=== PATIENT | male | born 1985 | race Two or more races ===

== ENCOUNTER 2019-07-25 22:17 | Inpatient (IN) | payer SELFPAY ==
[2019-07-26] MEDS ORDERED: SODIUM CHLORIDE 1,000 ML IV STA ×2 (00:27→03:26)
[2019-07-26] MEDS ORDERED: ONDANSETRON 4 MG/2 ML VIAL IVPUSH ONE (00:31)
[2019-07-26] MEDS ORDERED: ONDANSETRON 4 MG/2 ML VIAL ONE (01:00)
[2019-07-26] MEDS ORDERED: PANTOPRAZOLE SODIUM 40 MG VIAL IVPUSH ONE (01:00)
[2019-07-26] MEDS ORDERED: PANTOPRAZOLE SODIUM 40 MG VIAL ONE (01:01)
--- NOTE | 2019-07-26 01:10 | PDOC ---
History of Present Illness - General Chief Complaint: Pain Stated Complaint: VOMITTING BLOOD/NOSE BLEED/FAINTING Time Seen by Provider: 07/25/19 22:56 History Source: Patient Exam Limitations: No Limitations - History of Present Illness Initial Comments: 07/26/19 05:13 34 yo M with a hx of ETOH abuse (20+ years) and cocaine abuse (via nasal route) presents to the emergency department with hematemsis, nose bleed, and hematochezia with epigastric pain and nausea. Per the patient, he last snorted cocaine 2 days ago. Per the patient, he slept in a van last night and was violently shaking for unknown reasons. Denies fevers. Per the patient, he has never had alcohol detox before. Denies seizures from alcohol withdrawal. Allergies: NKDA Social: Cocaine and alcohol. Drinks "beer all day" Past History - Past Medical History Allergies/Adverse Reactions: Allergies Allergy/AdvReac Type Severity Reaction Status Date / Time No Known Allergies Allergy Verified 07/25/19 22:27 Home Medications: Ambulatory Orders NK [No Known Home Medication] 05/11/18 COPD: No Other medical history: alcoholism - Surgical History Appendectomy: Yes - Suicide/Smoking/Psychosocial Hx Smoking History: Never smoked Hx Alcohol Use: Yes Drug/Substance Use Hx: Yes *Physical Exam - Vital Signs Last Vital Signs Temp Pulse Resp BP Pulse Ox 98.4 F 95 H 20 124/72 99 07/25/19 22:28 07/25/19 22:28 07/25/19 22:28 07/25/19 22:28 07/25/19 22:28 ED Treatment Course - LABORATORY CBC & Chemistry Diagram: 07/26/19 00:46 07/26/19 00:46 - Medications Given in the ED: ED Medications Discontinued Medications Generic Name Dose Route Start Last Admin Trade Name Freq PRN Reason Stop Dose Admin Ondansetron HCl 4 mg 07/26/19 00:31 07/26/19 01:04 Zofran Injection IVPUSH 07/26/19 00:32 4 mg ONCE ONE Administration Pantoprazole Sodium 40 mg 07/26/19 01:00 07/26/19 01:04 Protonix Iv IVPUSH 07/26/19 01:01 40 mg ONCE ONE Administration Medical Decision Making - Medical Decision Making 07/26/19 05:24 34 yo M with a hx of ETOH abuse (20+ years) and cocaine abuse (via nasal route) presents to the emergency department with hematemsis, nose bleed, and hematochezia with epigastric pain and nausea. Initial vitals: Initial Vital Signs Temp Pulse Resp BP Pulse Ox 98.4 F 95 H 20 124/72 99 07/25/19 22:28 07/25/19 22:28 07/25/19 22:28 07/25/19 22:28 07/25/19 22:28 Work up: patient presents to the emergency department with nausea and vomiting in setting of epigastric pain with hematochezia and hematemsis. patient states he drinks beer all day and was violently shaking the night prior to presentation. Last drink was at 2am today. Per the patient, denies trauma and falls. Laboratory Tests 07/26/19 07/26/19 07/26/19 00:46 00:46 00:46 WBC 7.4 RBC 4.76 Hgb 14.1 Hct 41.9 MCV 88.0 MCH 29.6 MCHC 33.6 RDW 14.2 Plt Count 348 MPV 8.9 Absolute Neuts (auto) 3.4 Neutrophils % 46.0 Lymphocytes % 42.4 H Monocytes % 7.9 Eosinophils % 3.0 Basophils % 0.7 Nucleated RBC % 0 PT with INR INR Sodium 138 Potassium 3.7 Chloride 103 Carbon Dioxide 25 Anion Gap 10 BUN 5.8 L Creatinine 0.6 Est GFR (CKD-EPI)AfAm 153.11 Est GFR (CKD-EPI)NonAf 132.10 Random Glucose 101 Calcium 8.5 Magnesium 2.1 Cancelled Total Bilirubin 0.5 AST 94 H ALT 120 H Alkaline Phosphatase 108 Creatine Kinase Creatine Kinase Index CK-MB (CK-2) Troponin I Total Protein 8.7 H Albumin 4.3 Lipase 99 Cancelled Urine Color Urine Appearance Urine pH Ur Specific [place] Urine Protein Urine Glucose (UA) Urine Ketones Urine Blood Urine Nitrite Urine Bilirubin Urine Urobilinogen Ur Leukocyte Esterase Stool Occult Blood Opiates Screen Methadone Screen Barbiturate Screen Phencyclidine Screen Ur Amphetamines Screen MDMA (Ecstasy) Screen Benzodiazepines Screen Cocaine Screen U Marijuana (THC) Screen Alcohol, Quantitative Blood Type Antibody Screen 07/26/19 07/26/19 07/26/19 00:46 00:46 00:46 WBC RBC Hgb Hct MCV MCH MCHC RDW Plt Count MPV Absolute Neuts (auto) Neutrophils % Lymphocytes % Monocytes % Eosinophils % Basophils % Nucleated RBC % PT with INR 12.20 INR 1.03 Sodium Potassium Chloride Carbon Dioxide Anion Gap BUN Creatinine Est GFR (CKD-EPI)AfAm Est GFR (CKD-EPI)NonAf Random Glucose Calcium Magnesium Total Bilirubin AST ALT Alkaline Phosphatase Creatine Kinase 1292 H Creatine Kinase Index 1.2 CK-MB (CK-2) 16.5 H Troponin I < 0.02 Total Protein Albumin Lipase Urine Color Urine Appearance Urine pH Ur Specific [place] Urine Protein Urine Glucose (UA) Urine Ketones Urine Blood Urine Nitrite Urine Bilirubin Urine Urobilinogen Ur Leukocyte Esterase Stool Occult Blood Opiates Screen Methadone Screen Barbiturate Screen Phencyclidine Screen Ur Amphetamines Screen MDMA (Ecstasy) Screen Benzodiazepines Screen Cocaine Screen U Marijuana (THC) Screen Alcohol, Quantitative Blood Type O POSITIVE Antibody Screen Negative 07/26/19 07/26/19 07/26/19 00:46 02:23 02:32 WBC RBC Hgb Hct MCV MCH MCHC RDW Plt Count MPV Absolute Neuts (auto) Neutrophils % Lymphocytes % Monocytes % Eosinophils % Basophils % Nucleated RBC % PT with INR INR Sodium Potassium Chloride Carbon Dioxide Anion Gap BUN Creatinine Est GFR (CKD-EPI)AfAm Est GFR (CKD-EPI)NonAf Random Glucose Calcium Magnesium Total Bilirubin AST ALT Alkaline Phosphatase Creatine Kinase Creatine Kinase Index CK-MB (CK-2) Troponin I Total Protein Albumin Lipase Urine Color Yellow Urine Appearance Clear Urine pH 5.5 Ur Specific [place] 1.006 L Urine Protein Negative Urine Glucose (UA) Negative Urine Ketones Negative Urine Blood Negative Urine Nitrite Negative Urine Bilirubin Negative Urine Urobilinogen 0.2 Ur Leukocyte Esterase Negative Stool Occult Blood Positive Opiates Screen Methadone Screen Barbiturate Screen Phencyclidine Screen Ur Amphetamines Screen MDMA (Ecstasy) Screen Benzodiazepines Screen Cocaine Screen U Marijuana (THC) Screen Alcohol, Quantitative 247.2 H Blood Type Antibody Screen 07/26/19 07/26/19 02:32 03:50 WBC RBC Hgb Hct MCV MCH MCHC RDW Plt Count MPV Absolute Neuts (auto) Neutrophils % Lymphocytes % Monocytes % Eosinophils % Basophils % Nucleated RBC % PT with INR INR Sodium Potassium Chloride Carbon Dioxide Anion Gap BUN Creatinine Est GFR (CKD-EPI)AfAm Est GFR (CKD-EPI)NonAf Random Glucose Calcium Magnesium Total Bilirubin AST ALT Alkaline Phosphatase Creatine Kinase 1151 H Creatine Kinase Index 1.3 CK-MB (CK-2) 15.1 H Troponin I Total Protein Albumin Lipase Urine Color Urine Appearance Urine pH Ur Specific [place] Urine Protein Urine Glucose (UA) Urine Ketones Urine Blood Urine Nitrite Urine Bilirubin Urine Urobilinogen Ur Leukocyte Esterase Stool Occult Blood Opiates Screen Negative Methadone Screen Negative Barbiturate Screen Negative Phencyclidine Screen Negative Ur Amphetamines Screen Negative MDMA (Ecstasy) Screen Negative Benzodiazepines Screen Negative Cocaine Screen Positive A* U Marijuana (THC) Screen Negative Alcohol, Quantitative Blood Type Antibody Screen 1292 --> 1151 CK s/p 2 L of NS. Will order a third NS. Drug screen positive for cocaine and positive ethanol level in serum. Patient was re-examined. No tenderness to palpation in the abdomen. Does not have follow up care (no PMD). He also wants to enroll in alcohol detoxification. Patient does not have AYSHA but concerns exist of elevated CK despite 2 L. Will admit patient.
[2019-07-26 01:11] LABS: BASO % 0.7 % (0-2.0); HEMATOCRIT 41.9 % (35.4-49); HEMOGLOBIN 14.1 GM/dL (11.7-16.9); LYMPH % 42.4 % (8-40); MCH 29.6 pg (25.7-33.7); MCHC 33.6 g/dl (32.0-35.9); MEAN PLT VOLUME 8.9 fl (7.5-11.1); MONO % 7.9 % (3.8-10.2); PLATELET COUNT 348 K/MM3 (134-434); RBC 4.76 M/mm3 (4.00-5.60); RDW 14.2 % (11.9-15.9); WHITE BLOOD COUNT 7.4 K/mm3 (4.0-10.0)
[2019-07-26 01:25] LABS: INR 1.03 (0.83-1.09); PROTHROMBIN TIME (PATIENT) 12.2 SEC (9.7-13.0)
--- NOTE | 2019-07-26 01:28 | PDOC ---
Documentation entered by Alyssa Brewer SCRIBE, acting as scribe for Toshia Harden MD. Toshia Harden MD: This documentation has been prepared by the Daniella bell Xhesika, SCRIBE, under my direction and personally reviewed by me in its entirety. I confirm that the documentation accurately reflects all work, treatment, procedures, and medical decision making performed by me. Attending Attestation - Resident Resident Name: Pablito Zapata - ED Attending Attestation I have performed the following: I have examined & evaluated the patient, The case was reviewed & discussed with the resident, I agree w/resident's findings & plan, Exceptions are as noted - HPI HPI: 07/26/19 01:03 The patient is a 34 year old male with a significant PMH of alcohol use (since a teenager) and cocaine use (snorts) who presents to the emergency department for 2 days of hematemesis, nose bleed, and blood in stool (with dark brown clots ) associated with diffuse epigastric pain and nausea. The patient states he last snorted cocaine 2 days ago. The patient denies chest pain, shortness of breath, headache and dizziness. Denies fever, chills, cough,and constipation. Denies dysuria, frequency, urgency. - Physicial Exam PE: 07/26/19 01:04 GENERAL: Awake, alert, and fully oriented, in no acute distress. (+) alcohol on breath. HEAD: No signs of trauma EYES: PERRLA, EOMI, sclera anicteric, conjunctiva clear ENT: Auricles normal inspection, hearing grossly normal, (+) blood in L nares. NECK: Normal ROM, supple, no lymphadenopathy, JVD, or masses LUNGS: Breath sounds equal, clear to auscultation bilaterally. No wheezes, and no crackles HEART: Regular rate and rhythm, normal S1 and S2, no murmurs, rubs or gallops ABDOMEN: (+) epigastric tenderness. Soft, normoactive bowel sounds. No guarding , no rebound. No masses EXTREMITIES: Normal range of motion, no edema. No clubbing or cyanosis. No cords, erythema, or tenderness NEUROLOGICAL: Cranial nerves II through XII grossly intact. SKIN: Warm, Dry, normal turgor, no rashes or lesions noted. - Medical Decision Making 07/26/19 01:21 34 yo male w PMH of etoh and cocaine abuse p/w epigastric pain,nausea and reports vomiting blood and having rectal bleeding plan IVF, cbc,comp, stool hemoccult, type & screen,IVF,PPI,antiemtics and reassessment 07/26/19 01:27 07/26/19 01:44 review of labs: no anemia etoh level around 250 07/26/19 01:46 sl elevated lfts 07/26/19 01:57 diff diag includes etoh gastritis,gi bleed, hemorrhoids,atypical chest pain
[2019-07-26 01:34] LABS: ALBUMIN 4.3 g/dl (3.4-5.0); BILIRUBIN,TOTAL 0.5 mg/dL (0.2-1); BLOOD UREA NITROGEN 5.8 mg/dL (7-18); CALCIUM 8.5 mg/dL (8.5-10.1); CREATININE 0.6 mg/dL (0.55-1.3); MAGNESIUM 2.1 mg/dL (1.8-2.4); POTASSIUM 3.7 mmol/L (3.5-5.1); TOT PROT 8.7 g/dl (6.4-8.2)
[2019-07-26 02:46] LABS: PH,URINE 5.5 (5.0-8.0); URINE APPEARANCE CLEAR; URINE BILIRUBIN NEGATIVE (NEGATIVE); URINE COLOR YELLOW; URINE GLUCOSE (UA) NEGATIVE (NEGATIVE); URINE KETONE NEGATIVE (NEGATIVE); URINE LEUK ESTERASE NEGATIVE (NEGATIVE); URINE NITRITE NEGATIVE (NEGATIVE); URINE PROTEIN NEGATIVE (NEGATIVE); URINE UROBILINOGEN 0.2 mg/dL (0.2-1.0)
[2019-07-26 03:47] LABS: METHADONE, UR NEGATIVE ng/ml (CUTOFF=300); OPIATES, URI NEGATIVE ng/ml (CUTOFF=300); PHENCYCLIDINE,URINE NEGATIVE ng/ml (CUTOFF=25); URINE AMPHETAMINES NEGATIVE ng/ml (CUTOFF=500); URINE BARBITURATES NEGATIVE ng/ml (CUTOFF=200); URINE BENZODIAZEPINES NEGATIVE ng/ml (CUTOFF=200)
[2019-07-26 03:51] LABS: COCAINE, UR POSITIVE ng/ml (CUTOFF=300)
--- NOTE | 2019-07-26 07:15 | PDOC ---
*Physical Exam - Vital Signs Last Vital Signs Temp Pulse Resp BP Pulse Ox 98.4 F 95 H 20 124/72 99 07/25/19 22:28 07/25/19 22:28 07/25/19 22:28 07/25/19 22:28 07/25/19 22:28 ED Treatment Course - LABORATORY CBC & Chemistry Diagram: 07/27/19 06:48 07/27/19 06:48 - ADDITIONAL ORDERS Additional order review: Laboratory Results 07/26/19 07/26/19 07/26/19 03:50 02:32 02:32 PT with INR INR Sodium Potassium Chloride Carbon Dioxide Anion Gap BUN Creatinine Est GFR (CKD-EPI)AfAm Est GFR (CKD-EPI)NonAf Random Glucose Calcium Magnesium Total Bilirubin AST ALT Alkaline Phosphatase Creatine Kinase 1151 H Creatine Kinase Index 1.3 CK-MB (CK-2) 15.1 H Troponin I Total Protein Albumin Lipase Urine Color Yellow Urine Appearance Clear Urine pH 5.5 Ur Specific [place] 1.006 L Urine Protein Negative Urine Glucose (UA) Negative Urine Ketones Negative Urine Blood Negative Urine Nitrite Negative Urine Bilirubin Negative Urine Urobilinogen 0.2 Ur Leukocyte Esterase Negative Stool Occult Blood Opiates Screen Negative Methadone Screen Negative Barbiturate Screen Negative Phencyclidine Screen Negative Ur Amphetamines Screen Negative MDMA (Ecstasy) Screen Negative Benzodiazepines Screen Negative Cocaine Screen Positive A* U Marijuana (THC) Screen Negative Alcohol, Quantitative Blood Type Antibody Screen 07/26/19 07/26/19 07/26/19 02:23 00:46 00:46 PT with INR INR Sodium Potassium Chloride Carbon Dioxide Anion Gap BUN Creatinine Est GFR (CKD-EPI)AfAm Est GFR (CKD-EPI)NonAf Random Glucose Calcium Magnesium Total Bilirubin AST ALT Alkaline Phosphatase Creatine Kinase 1292 H Creatine Kinase Index 1.2 CK-MB (CK-2) 16.5 H Troponin I < 0.02 Total Protein Albumin Lipase Urine Color Urine Appearance Urine pH Ur Specific [place] Urine Protein Urine Glucose (UA) Urine Ketones Urine Blood Urine Nitrite Urine Bilirubin Urine Urobilinogen Ur Leukocyte Esterase Stool Occult Blood Positive Opiates Screen Methadone Screen Barbiturate Screen Phencyclidine Screen Ur Amphetamines Screen MDMA (Ecstasy) Screen Benzodiazepines Screen Cocaine Screen U Marijuana (THC) Screen Alcohol, Quantitative 247.2 H Blood Type Antibody Screen 07/26/19 07/26/19 07/26/19 00:46 00:46 00:46 PT with INR 12.20 INR 1.03 Sodium Potassium Chloride Carbon Dioxide Anion Gap BUN Creatinine Est GFR (CKD-EPI)AfAm Est GFR (CKD-EPI)NonAf Random Glucose Calcium Magnesium Cancelled Total Bilirubin AST ALT Alkaline Phosphatase Creatine Kinase Creatine Kinase Index CK-MB (CK-2) Troponin I Total Protein Albumin Lipase Cancelled Urine Color Urine Appearance Urine pH Ur Specific [place] Urine Protein Urine Glucose (UA) Urine Ketones Urine Blood Urine Nitrite Urine Bilirubin Urine Urobilinogen Ur Leukocyte Esterase Stool Occult Blood Opiates Screen Methadone Screen Barbiturate Screen Phencyclidine Screen Ur Amphetamines Screen MDMA (Ecstasy) Screen Benzodiazepines Screen Cocaine Screen U Marijuana (THC) Screen Alcohol, Quantitative Blood Type O POSITIVE Antibody Screen Negative 07/26/19 00:46 PT with INR INR Sodium 138 Potassium 3.7 Chloride 103 Carbon Dioxide 25 Anion Gap 10 BUN 5.8 L Creatinine 0.6 Est GFR (CKD-EPI)AfAm 153.11 Est GFR (CKD-EPI)NonAf 132.10 Random Glucose 101 Calcium 8.5 Magnesium 2.1 Total Bilirubin 0.5 AST 94 H ALT 120 H Alkaline Phosphatase 108 Creatine Kinase Creatine Kinase Index CK-MB (CK-2) Troponin I Total Protein 8.7 H Albumin 4.3 Lipase 99 Urine Color Urine Appearance Urine pH Ur Specific [place] Urine Protein Urine Glucose (UA) Urine Ketones Urine Blood Urine Nitrite Urine Bilirubin Urine Urobilinogen Ur Leukocyte Esterase Stool Occult Blood Opiates Screen Methadone Screen Barbiturate Screen Phencyclidine Screen Ur Amphetamines Screen MDMA (Ecstasy) Screen Benzodiazepines Screen Cocaine Screen U Marijuana (THC) Screen Alcohol, Quantitative Blood Type Antibody Screen 07/26/19 00:46 RBC 4.76 MCV 88.0 MCHC 33.6 RDW 14.2 MPV 8.9 Neutrophils % 46.0 Lymphocytes % 42.4 H Monocytes % 7.9 Eosinophils % 3.0 Basophils % 0.7 - Medications Given in the ED: ED Medications Discontinued Medications Generic Name Dose Route Start Last Admin Trade Name Freq PRN Reason Stop Dose Admin Sodium Chloride 1,000 mls @ 1,000 mls/hr 07/26/19 00:27 07/26/19 00:58 Normal Saline - IV 07/26/19 01:26 1,000 mls/hr ASDIR STA Administration Sodium Chloride 1,000 mls @ 1,000 mls/hr 07/26/19 03:26 07/26/19 03:27 Normal Saline - IV 07/26/19 04:25 1,000 mls/hr ASDIR STA Administration Ondansetron HCl 4 mg 07/26/19 00:31 07/26/19 01:04 Zofran Injection IVPUSH 07/26/19 00:32 4 mg ONCE ONE Administration Pantoprazole Sodium 40 mg 07/26/19 01:00 07/26/19 01:04 Protonix Iv IVPUSH 07/26/19 01:01 40 mg ONCE ONE Administration Medical Decision Making - Medical Decision Making 07/26/19 07:13 Pt received on sign out from Dr. Zapata. Briefly, pt with positive for ETOH/ cocaine, presenting with hematochezia and hematemesis, positive stool guaic, CK 1292 mildly decreased after 2L NS. Plan to admit for detox. 07/26/19 09:30 Discussed with the hospitalist who agrees to admit the patient. *DC/Admit/Observation/Transfer Diagnosis at time of Disposition: Rhabdomyolysis - Discharge Dispostion Condition at time of disposition: Stable - Referrals - Patient Instructions - Post Discharge Activity
[2019-07-26 08:35] LABS: HEMATOCRIT 39.4 % (35.4-49); HEMOGLOBIN 13.7 GM/dL (11.7-16.9); MCH 30.2 pg (25.7-33.7); MCHC 34.8 g/dl (32.0-35.9); MEAN CELL VOLUME 86.7 fl (80-96); MEAN PLT VOLUME 8.7 fl (7.5-11.1); PLATELET COUNT 322 K/MM3 (134-434); RBC 4.54 M/mm3 (4.00-5.60); WHITE BLOOD COUNT 6.7 K/mm3 (4.0-10.0)
--- NOTE | 2019-07-26 09:18 | EKG ---
Test Reason : Blood Pressure : / mmHG Vent. Rate : 075 BPM Atrial Rate : 075 BPM P-R Int : 178 ms QRS Dur : 094 ms QT Int : 388 ms P-R-T Axes : 070 062 046 degrees QTc Int : 433 ms NORMAL SINUS RHYTHM WITH SINUS ARRHYTHMIA NORMAL ECG NO PREVIOUS ECGS AVAILABLE Confirmed by ALPHONSO MURRY, LEIA ([id number]) on 07/26/2019 9:18:16 AM Referred By: Confirmed By:LEIA WERNER MD
[2019-07-26] MEDS ORDERED: chlordiazePOXIDE HCL 10 MG CAPSULE PO PRN ×3 (09:41→20:55)
--- NOTE | 2019-07-26 09:49 | HP ---
CHIEF COMPLAINT: Hematemesis, Hematochezia, Epistaxsis, Epigastric pain PCP: None HISTORY OF PRESENT ILLNESS: 34 y/o M with PMHx of Polysubstance abuse (EtOH, Cocaine) presents with Epigastric pain + Hematemesis + Hematochezia. Patient was accompanied by his who aided in providing the HPI. Patient was in his usual state of health until 07/24 where had 2-4 episodes of vomiting described as dark brown with bright red blood. This was accompanied by 2 episodes of bright red blood clots in his stool and epistaxsis. Patient mentions his extensive EtOH use, consuming approx. 20-25, 24oz beers daily for many years however on the day these events occurred, he mentions 6-7 additional tequila shots and snorting 1 line of Cocaine. Shortly after, he began to feel an 8/10 epigastric pain and tightness. The pain persisted prompting him to visit [facility]. This is the first time this has happened. He denies any recent NSAID use and mentions taking Ampicillin 500mg x 6 tablets in one day which provided no relief. Denies any recent trauma. Additionally complains of Chills. Denies any fevers, chest pain, SOB, diarrhea, constipation, hematuria, dysuria. Recent Travel: Denies PAST MEDICAL HISTORY: Polysubstance abuse (EtOH, Cocaine) PAST SURGICAL HISTORY: Appendectomy Social History: Smoking: Denies Alcohol: 20-25, 24oz beers daily since age 16 Drugs: Cocaine use (1 line every 2-3 weeks for the past 2 years) Residence: At home with Born in [place], Came to the [place] about 20 years ago Family History: Mother: HTN Father: Unknown Allergies No Known Allergies Allergy (Verified 07/25/19 22:27) HOME MEDICATIONS: Home Medications Medication Instructions Recorded NK [No Known Home Medication] 05/11/18 REVIEW OF SYSTEMS As per HPI PHYSICAL EXAMINATION Vital Signs - 24 hr 07/25/19 07/26/19 07/26/19 22:28 07:55 09:39 Temperature 98.4 F 98.8 F Pulse Rate 95 H Pulse Rate [ 78 Left Radial] Respiratory 20 16 Rate Blood Pressure 124/72 Blood Pressure 110/59 L [Right] O2 Sat by Pulse 99 98 98 Oximetry (%) GENERAL: A&Ox3, NAD HEAD: NCAT EYES: PERRL, EOMI EARS, NOSE, THROAT: Dried blood in the nares. Oropharynx clear without exudates. Moist mucous membranes. NECK: Supple, No JVD LUNGS: CTAB, No wheezes, no crackles HEART: Regular rate and rhythm, normal S1 and S2 without murmur ABDOMEN: Soft, Tender to palpation in the midepigastrum, not distended, + bowel sounds, no guarding, no rebound MUSCULOSKELETAL: No CVA tenderness. EXTREMITIES: No peripheral edema. NEUROLOGICAL: Cranial nerves II-XII intact. Normal speech. PSYCHIATRIC: Cooperative. Good eye contact. CIWA 18 SKIN: Warm, dry RECTAL: Stool in the Vault, good sphincter tone, No external hemmorrhoids visualized, No internal hemorrhoids felt, No active bleeding noted, no blood on tip of glove Laboratory Last Values WBC 6.7 K/mm3 (4.0-10.0) 07/26/19 08:20 RBC 4.54 M/mm3 (4.00-5.60) 07/26/19 08:20 Hgb 13.7 GM/dL (11.7-16.9) 07/26/19 08:20 Hct 39.4 % (35.4-49) 07/26/19 08:20 MCV 86.7 fl (80-96) 07/26/19 08:20 MCH 30.2 pg (25.7-33.7) 07/26/19 08:20 MCHC 34.8 g/dl (32.0-35.9) 07/26/19 08:20 RDW 14.0 % (11.9-15.9) 07/26/19 08:20 Plt Count 322 K/MM3 (134-434) 07/26/19 08:20 MPV 8.7 fl (7.5-11.1) 07/26/19 08:20 Absolute Neuts (auto) 3.4 K/mm3 (1.5-8.0) 07/26/19 00:46 Neutrophils % 46.0 % (42.8-82.8) 07/26/19 00:46 Lymphocytes % 42.4 % (8-40) H 07/26/19 00:46 Monocytes % 7.9 % (3.8-10.2) 07/26/19 00:46 Eosinophils % 3.0 % (0-4.5) 07/26/19 00:46 Basophils % 0.7 % (0-2.0) 07/26/19 00:46 Nucleated RBC % 0 % (0-0) 07/26/19 00:46 PT with INR 12.20 SEC (9.7-13.0) 07/26/19 00:46 INR 1.03 (0.83-1.09) 07/26/19 00:46 Sodium 138 mmol/L (136-145) 07/26/19 00:46 Potassium 3.7 mmol/L (3.5-5.1) 07/26/19 00:46 Chloride 103 mmol/L (98-107) 07/26/19 00:46 Carbon Dioxide 25 mmol/L (21-32) 07/26/19 00:46 Anion Gap 10 MMOL/L (8-16) 07/26/19 00:46 BUN 5.8 mg/dL (7-18) L 07/26/19 00:46 Creatinine 0.6 mg/dL (0.55-1.3) 07/26/19 00:46 Est GFR (CKD-EPI)AfAm 153.11 07/26/19 00:46 Est GFR (CKD-EPI)NonAf 132.10 07/26/19 00:46 Random Glucose 101 mg/dL (74-106) 07/26/19 00:46 Calcium 8.5 mg/dL (8.5-10.1) 07/26/19 00:46 Magnesium 2.1 mg/dL (1.8-2.4) 07/26/19 00:46 Total Bilirubin 0.5 mg/dL (0.2-1) 07/26/19 00:46 AST 94 U/L (15-37) H 07/26/19 00:46 ALT 120 U/L (13-61) H 07/26/19 00:46 Alkaline Phosphatase 108 U/L (45-117) 07/26/19 00:46 Creatine Kinase 1151 U/L (26-308) H 07/26/19 03:50 Creatine Kinase Index 1.3 % (0.0-5.0) 07/26/19 03:50 CK-MB (CK-2) 15.1 ng/mL (0.5-3.6) H 07/26/19 03:50 Troponin I < 0.02 ng/ml (0.00-0.05) 07/26/19 00:46 Total Protein 8.7 g/dl (6.4-8.2) H 07/26/19 00:46 Albumin 4.3 g/dl (3.4-5.0) 07/26/19 00:46 Lipase 99 U/L (73-393) 07/26/19 00:46 Urine Color Yellow 07/26/19 02:32 Urine Appearance Clear 07/26/19 02:32 Urine pH 5.5 (5.0-8.0) 07/26/19 02:32 Ur Specific [place] 1.006 (1.010-1.035) L 07/26/19 02:32 Urine Protein Negative (NEGATIVE) 07/26/19 02:32 Urine Glucose (UA) Negative (NEGATIVE) 07/26/19 02:32 Urine Ketones Negative (NEGATIVE) 07/26/19 02:32 Urine Blood Negative (NEGATIVE) 07/26/19 02:32 Urine Nitrite Negative (NEGATIVE) 07/26/19 02:32 Urine Bilirubin Negative (NEGATIVE) 07/26/19 02:32 Urine Urobilinogen 0.2 mg/dL (0.2-1.0) 07/26/19 02:32 Ur Leukocyte Esterase Negative (NEGATIVE) 07/26/19 02:32 Stool Occult Blood Positive (NEGATIVE) 07/26/19 02:23 Opiates Screen Negative ng/ml (EZKQUM=877) 07/26/19 02:32 Methadone Screen Negative ng/ml (VEGJCA=019) 07/26/19 02:32 Barbiturate Screen Negative ng/ml (INSHHQ=682) 07/26/19 02:32 Phencyclidine Screen Negative ng/ml (CUTOFF=25) 07/26/19 02:32 Ur Amphetamines Screen Negative ng/ml (LXUCWR=829) 07/26/19 02:32 MDMA (Ecstasy) Screen Negative ng/ml (YNPZZJ=905) 07/26/19 02:32 Benzodiazepines Screen Negative ng/ml (WRPBGM=789) 07/26/19 02:32 Cocaine Screen Positive ng/ml (NSJKWP=287) A* 07/26/19 02:32 U Marijuana (THC) Screen Negative ng/ml (CUTOFF=50) 07/26/19 02:32 Alcohol, Quantitative 247.2 mg/dL (0.0-5.0) H 07/26/19 00:46 Blood Type O POSITIVE 07/26/19 06:00 Antibody Screen Negative 07/26/19 00:46 Active Medications Chlordiazepoxide HCl (Librium -) 25 mg PO Q8H [facility] Stop: 07/26/19 21:01 Last Admin: 07/26/19 13:41 Dose: 25 mg Chlordiazepoxide HCl (Librium -) 10 mg PO Q12H PRN PRN Reason: Signs/symptoms of Withdrawal Stop: 07/30/19 00:00 Chlordiazepoxide HCl (Librium -) 10 mg PO Q8H PRN PRN Reason: Signs/symptoms of Withdrawal Stop: 07/27/19 13:34 Chlordiazepoxide HCl (Librium -) 25 mg PO Q8H [facility] Stop: 07/27/19 21:01 Last Admin: 07/26/19 15:01 Dose: Not Given Chlordiazepoxide HCl (Librium -) 15 mg PO Q8H [facility] Stop: 07/28/19 21:01 Chlordiazepoxide HCl (Librium -) 10 mg PO Q8H [facility] Stop: 07/29/19 21:01 Chlordiazepoxide HCl (Librium -) 10 mg PO ONCE ONE Stop: 07/30/19 05:01 Folic Acid (Folic Acid -) 1 mg PO DAILY [facility] Pantoprazole Sodium 80 mg/ (Sodium Chloride) 100 mls @ 10 mls/hr IVPB Q10H [facility] Last Admin: 07/26/19 13:35 Dose: 10 mls/hr Octreotide Acetate 200 mcg/Octreotide Acetate 1,000 mcg/Dextrose 500 mls @ 20.833 mls/hr IVPB ASDIR WANDA; Protocol Sodium Chloride (Normal Saline -) 1,000 mls @ 150 mls/hr IV ASDIR WANDA Multivitamins/Minerals/Vitamin C (Tab-A-Vit -) 1 tab PO DAILY [facility] Thiamine HCl (Vitamin B1 Injection -) 200 mg IVPB DAILY [facility] IMAGING: -EKG: NSR, Prolonged QT, VR 85, QTc 487 ASSESSMENT/PLAN: 34 y/o M with PMHx of Polysubstance abuse (EtOH, Cocaine) presents with Epigastric pain + Hematemesis + Hematochezia. #GI Bleed -Concerning for Variceal bleed; Still must consider alcoholic gastritis, hemorroidal bleed and diverticular disease -Rectal exam noted above, FOBT positive, H&H Stable, VSS, No isolated BUN elevation -Maintain 2 large bore IV's (>18 guage) -Vital signs Q4H; Call if HR > 100 or SBP < 100 -NS @ 150 mls/hr -IV Pantoprazole GTT -IV Octreotide GTT -NPO -Fall precautions -Supplemental O2 to maintain SpO2 > 90% -Avoid NSAIDs/ASA -Trend H&H -Serial abdominal exams -GI (Dr. Howe) consulted, appreciate rec's #Polysubstance use disorder -UTox + for cocaine, EtOH 247.2 -CIWA score 18--Librium Protocol started -Bananna bag bolus now -Thiamine, folic acid, MVI Daily -Addiction medicine (Dr. Anderson) consulted -Will likely need rehab placement -Would avoid beta gina in the setting of Cocaine + #Rhabdomyolysis -In the setting of recent cocaine use -1292-->1151 after 2L Bolus -Will continue to Hydrate and check CPK in AM. #Transaminitis -In the setting of Chronic EtOH use -Trend, if continue to rise will consider further imaging and Hepatitis panel #Prolonged QT -QTc 487 noted on EKG -Avoid QT Prolonging agents #FEN -NS @ 150 mls/hr -Lytes WNL, Replete PRN -NPO #PPx -DVT: SCDs; Will avoid chemical AC in the setting of GIB Dispo: Monitor on Tele Visit type - Emergency Visit Emergency Visit: Yes ED Registration Date: 07/26/19 Care time: The patient presented to the Emergency Department on the above date and was hospitalized for further evaluation of their emergent condition. - New Patient This patient is new to me today: Yes Date on this admission: 07/26/19 - Critical Care Critical Care patient: No ATTENDING PHYSICIAN STATEMENT I saw and evaluated the patient. I reviewed the resident's note and discussed the case with the resident. I agree with the resident's findings and plan as documented. SUBJECTIVE: OBJECTIVE: ASSESSMENT AND PLAN:
[2019-07-26] MEDS ORDERED: THIAMINE HCL 200 MG/2 ML VIAL IVPB SCH (10:00)
[2019-07-26] MEDS: chlordiazePOXIDE HCL 25 MG CAPSULE PO SCH ×3 (10:16→21:49)
[2019-07-26] MEDS ORDERED: FOLIC ACID INJECTION - 1 MG, THIAMINE HCL 100 MG, MULTIVIT INJECTION ADULT 10 ML in SOD... IVPB ONE (10:30)
[2019-07-26] MEDS ORDERED: OCTREOTIDE ACETATE 200 MCG, OCTREOTIDE ACETATE 1,000 MCG in DEXTROSE 5%-WATER - 496 ML IVPB SCH (10:30)
[2019-07-26] MEDS ORDERED: SODIUM CHLORIDE 1,000 ML IV SCH ×2 (10:45→20:55)
[2019-07-26] MEDS: PANTOPRAZOLE SODIUM 80 MG in SODIUM CHLORIDE 100 ML IVPB SCH ×2 (11:30→13:35)
[2019-07-26 12:48] VITALS: BMI 27.6
[2019-07-26] MEDS ORDERED: chlordiazePOXIDE HCL 25 MG CAPSULE PO SCH ×2 (13:00→21:00)
--- NOTE | 2019-07-26 13:27 | CONSULT ---
Consult Detox [facility] Reason for Current Admission/Consult: Patient is alcohol dependent and cocaine use disorder. Referred by:: Sara Gallegos - History History of Present Illness: 34 year old male with alcohol dependence admitted 07/25/19 for hematemesis and hematochezia. He also admits and endorses to use of cocaine on a regular basis Patient drinks daily up to 25 24 oz of beers per day. He has been drinking since the age of 19 and last drank the day of admission. Patient uses cocaine sporadically 3-4 times per week. Patient also smokes ciggarettes daily about 1 ppd. - History Source History Provided By: Patient Limitations to Obtaining History: No Limitations - Alcohol/Substance Use Hx Alcohol Use: Yes (25 24 oz beers daily) Hx Substance Use: Yes (cocaine also sporadically) Hx Substance Use Treatment: No - Significant Medical Findings: Patient is hemodynamically stable right now and his physical exam other than epigastric tenderness is benign. Patient is having withdrawals symptoms: sweats, tremulousness, etc. CIWA Score - CIWA Score Nausea/Vomitin-Mild Nausea/No Vomiting Muscle Tremors: 4-Moderate,w/Arms Extend Anxiety: 4-Mod. Anxious/Guarded Agitation: 2 Paroxysmal Sweats: 3 Orientation: 0-Oriented Tacttile Disturbances: 0-None Auditory Disturbances: 0-None Visual Disturbances: 0-None Headache: 0-None Present CIWA-Ar Total Score: 14 Assessment Plan - Plan Plan: 1. Alcohol Dependence with complicated withdrawals. Patient can be started on oral librium moderate detox protocol Patient can be removed from NPO to initiate detox protocol. Upon completion of the detox protocol and when he is medically stable and his GI resolves, he can either continue the protocol at [facility] or continue onwards to rehab at [facility]. 2. GI Bleed: Upper most likely due to alcoholic gastritis, lower bleed may be due to hemorrhoids or some other cause. Would consult GI if it persists to do colonoscopy for site of bleed. Upper endoscopy would not be unwarranted as well, if hematemesis were to continue or recur to rule out esophageal varices secondary to chronic alcoholism and cirrhosis. LFT's should be followed. - Medication Detox Regimen/Protocol: Librium
--- NOTE | 2019-07-26 13:31 | CON.GI ---
Consult Consult Specialty:: Gastroenterology Reason for Consultation:: Blood in emesis - History of Present Illness Chief Complaint: Blood in emesis History of Present Illness: 34 yo M with polysubstance use (alcohol and cocaine) who was admitted with 2 days of emesis, some with blood, in setting of nose bleed, dark stool (but not melenic). Now without pain, emesis for >24 hours. BUN not elevated, Hgb normal and stable. No tachycardia. Normal BP. No nausea. Presently without abdominal pain. No history of prior GI illness. - History Source History Provided By: Patient Limitations to Obtaining History: No Limitations - Alcohol/Substance Use Hx Alcohol Use: Yes History of Substance Use: reports: Cocaine - Smoking History Smoking history: Never smoked Home Medications - Allergies Allergies/Adverse Reactions: Allergies Allergy/AdvReac Type Severity Reaction Status Date / Time No Known Allergies Allergy Verified 07/25/19 22:27 - Home Medications Home Medications: Ambulatory Orders NK [No Known Home Medication] 05/11/18 Review of Systems - Review of Systems Constitutional: denies: Chills, Diaphoresis, Fever, Loss of Appetite Gastrointestinal: reports: Vomiting, Vomiting Blood. denies: Abdominal Pain, Constipation, Diarrhea, Dysphagia, Melena, Nausea Physical Exam-GI Vital Signs: Vital Signs Temperature 98.2 F 07/26/19 12:42 Pulse Rate 73 07/26/19 12:42 Respiratory Rate 18 07/26/19 12:42 Blood Pressure 145/89 07/26/19 12:42 O2 Sat by Pulse Oximetry (%) 98 07/26/19 09:39 Cardiovascular: Yes: Regular Rate and Rhythm, S1, S2. No: Murmur Respiratory: Yes: CTA Bilaterally. No: Rhonchi, Wheezes Gastrointestinal Inspection: Yes: WNL ...Auscultate: Yes: Normoactive Bowel Sounds ...Palpate: No: Guarding, Hepatomegaly, Mass, Tenderness Labs: CBC, BMP 07/26/19 08:20 07/26/19 00:46 INR, PTT INR 1.03 (0.83-1.09) 07/26/19 00:46 Assessment/Plan Nose bleed, emesis, epidose of hematemesis without increase in heart rate, elevation of BUN, or drop in hemoglobin/ hematocrit in setting of cocaine and EtOH use (both positive on screen). Likely all a function of EtOH intoxication. No indication for EGD at this time given normal vital signs and BUN. Favor observation, supportive care, and counseling re: polysubstance use at this time. OK to continue acid suppressive therapy.
--- NOTE | 2019-07-26 14:50 | EKG ---
Test Reason : Blood Pressure : / mmHG Vent. Rate : 085 BPM Atrial Rate : 085 BPM P-R Int : 158 ms QRS Dur : 094 ms QT Int : 410 ms P-R-T Axes : 073 059 052 degrees QTc Int : 487 ms NORMAL SINUS RHYTHM PROLONGED QT ABNORMAL ECG WHEN COMPARED WITH ECG OF 26-JUL-2019 00:24, NO SIGNIFICANT CHANGE WAS FOUND Confirmed by ALPHONSO MURRY, LEIA ([id number]) on 07/26/2019 2:49:33 PM Referred By: Abhijit WHIPPLE Confirmed By:LEIA WERNER MD
--- NOTE | 2019-07-26 17:57 | PN ---
Teaching Attending Note Name of Resident: Sara Gallegos ATTENDING PHYSICIAN STATEMENT I saw and evaluated the patient. I reviewed the resident's note and discussed the case with the resident. I agree with the resident's findings and plan as documented. SUBJECTIVE: Ongoing abdominal pain - no further nausea/vomiting/hematemesis/ hematochezia. No CP/palpitations/lightheadedness. OBJECTIVE: Afebrile, Hemodynamically Stable. Last Vital Signs Temp Pulse Resp BP Pulse Ox 97.3 F L 67 20 134/77 98 07/26/19 17:20 07/26/19 17:20 07/26/19 17:20 07/26/19 17:20 07/26/19 09:39 HEENT - Atraumatic,Normocephalic. Heart - S1, S2, RRR lungs - clear to auscultation Abdomen - Soft, epigastric tenderness. Bowel Sounds normal. Extremities - no edema, no calf tenderness. Neuro - AAO x 3. Tremor++. Tone/Power normal all 4 extremities. Laboratory Results - last 24 hr 07/26/19 07/26/19 07/26/19 00:46 00:46 00:46 WBC 7.4 RBC 4.76 Hgb 14.1 Hct 41.9 MCV 88.0 MCH 29.6 MCHC 33.6 RDW 14.2 Plt Count 348 MPV 8.9 Absolute Neuts (auto) 3.4 Neutrophils % 46.0 Lymphocytes % 42.4 H Monocytes % 7.9 Eosinophils % 3.0 Basophils % 0.7 Nucleated RBC % 0 PT with INR INR Sodium 138 Potassium 3.7 Chloride 103 Carbon Dioxide 25 Anion Gap 10 BUN 5.8 L Creatinine 0.6 Est GFR (CKD-EPI)AfAm 153.11 Est GFR (CKD-EPI)NonAf 132.10 Random Glucose 101 Calcium 8.5 Magnesium 2.1 Cancelled Total Bilirubin 0.5 AST 94 H ALT 120 H Alkaline Phosphatase 108 Creatine Kinase Creatine Kinase Index CK-MB (CK-2) Troponin I Total Protein 8.7 H Albumin 4.3 Lipase 99 Cancelled Urine Color Urine Appearance Urine pH Ur Specific Opp Urine Protein Urine Glucose (UA) Urine Ketones Urine Blood Urine Nitrite Urine Bilirubin Urine Urobilinogen Ur Leukocyte Esterase Stool Occult Blood Opiates Screen Methadone Screen Barbiturate Screen Phencyclidine Screen Ur Amphetamines Screen MDMA (Ecstasy) Screen Benzodiazepines Screen Cocaine Screen U Marijuana (THC) Screen Alcohol, Quantitative Blood Type Antibody Screen 07/26/19 07/26/19 07/26/19 00:46 00:46 00:46 WBC RBC Hgb Hct MCV MCH MCHC RDW Plt Count MPV Absolute Neuts (auto) Neutrophils % Lymphocytes % Monocytes % Eosinophils % Basophils % Nucleated RBC % PT with INR 12.20 INR 1.03 Sodium Potassium Chloride Carbon Dioxide Anion Gap BUN Creatinine Est GFR (CKD-EPI)AfAm Est GFR (CKD-EPI)NonAf Random Glucose Calcium Magnesium Total Bilirubin AST ALT Alkaline Phosphatase Creatine Kinase 1292 H Creatine Kinase Index 1.2 CK-MB (CK-2) 16.5 H Troponin I < 0.02 Total Protein Albumin Lipase Urine Color Urine Appearance Urine pH Ur Specific Opp Urine Protein Urine Glucose (UA) Urine Ketones Urine Blood Urine Nitrite Urine Bilirubin Urine Urobilinogen Ur Leukocyte Esterase Stool Occult Blood Opiates Screen Methadone Screen Barbiturate Screen Phencyclidine Screen Ur Amphetamines Screen MDMA (Ecstasy) Screen Benzodiazepines Screen Cocaine Screen U Marijuana (THC) Screen Alcohol, Quantitative Blood Type O POSITIVE Antibody Screen Negative 07/26/19 07/26/19 07/26/19 00:46 02:23 02:32 WBC RBC Hgb Hct MCV MCH MCHC RDW Plt Count MPV Absolute Neuts (auto) Neutrophils % Lymphocytes % Monocytes % Eosinophils % Basophils % Nucleated RBC % PT with INR INR Sodium Potassium Chloride Carbon Dioxide Anion Gap BUN Creatinine Est GFR (CKD-EPI)AfAm Est GFR (CKD-EPI)NonAf Random Glucose Calcium Magnesium Total Bilirubin AST ALT Alkaline Phosphatase Creatine Kinase Creatine Kinase Index CK-MB (CK-2) Troponin I Total Protein Albumin Lipase Urine Color Yellow Urine Appearance Clear Urine pH 5.5 Ur Specific [place] 1.006 L Urine Protein Negative Urine Glucose (UA) Negative Urine Ketones Negative Urine Blood Negative Urine Nitrite Negative Urine Bilirubin Negative Urine Urobilinogen 0.2 Ur Leukocyte Esterase Negative Stool Occult Blood Positive Opiates Screen Methadone Screen Barbiturate Screen Phencyclidine Screen Ur Amphetamines Screen MDMA (Ecstasy) Screen Benzodiazepines Screen Cocaine Screen U Marijuana (THC) Screen Alcohol, Quantitative 247.2 H Blood Type Antibody Screen 07/26/19 07/26/19 07/26/19 02:32 03:50 06:00 WBC RBC Hgb Hct MCV MCH MCHC RDW Plt Count MPV Absolute Neuts (auto) Neutrophils % Lymphocytes % Monocytes % Eosinophils % Basophils % Nucleated RBC % PT with INR INR Sodium Potassium Chloride Carbon Dioxide Anion Gap BUN Creatinine Est GFR (CKD-EPI)AfAm Est GFR (CKD-EPI)NonAf Random Glucose Calcium Magnesium Total Bilirubin AST ALT Alkaline Phosphatase Creatine Kinase 1151 H Creatine Kinase Index 1.3 CK-MB (CK-2) 15.1 H Troponin I Total Protein Albumin Lipase Urine Color Urine Appearance Urine pH Ur Specific Opp Urine Protein Urine Glucose (UA) Urine Ketones Urine Blood Urine Nitrite Urine Bilirubin Urine Urobilinogen Ur Leukocyte Esterase Stool Occult Blood Opiates Screen Negative Methadone Screen Negative Barbiturate Screen Negative Phencyclidine Screen Negative Ur Amphetamines Screen Negative MDMA (Ecstasy) Screen Negative Benzodiazepines Screen Negative Cocaine Screen Positive A* U Marijuana (THC) Screen Negative Alcohol, Quantitative Blood Type O POSITIVE Antibody Screen 07/26/19 08:20 WBC 6.7 RBC 4.54 Hgb 13.7 Hct 39.4 MCV 86.7 MCH 30.2 MCHC 34.8 RDW 14.0 Plt Count 322 MPV 8.7 Absolute Neuts (auto) Neutrophils % Lymphocytes % Monocytes % Eosinophils % Basophils % Nucleated RBC % PT with INR INR Sodium Potassium Chloride Carbon Dioxide Anion Gap BUN Creatinine Est GFR (CKD-EPI)AfAm Est GFR (CKD-EPI)NonAf Random Glucose Calcium Magnesium Total Bilirubin AST ALT Alkaline Phosphatase Creatine Kinase Creatine Kinase Index CK-MB (CK-2) Troponin I Total Protein Albumin Lipase Urine Color Urine Appearance Urine pH Ur Specific Opp Urine Protein Urine Glucose (UA) Urine Ketones Urine Blood Urine Nitrite Urine Bilirubin Urine Urobilinogen Ur Leukocyte Esterase Stool Occult Blood Opiates Screen Methadone Screen Barbiturate Screen Phencyclidine Screen Ur Amphetamines Screen MDMA (Ecstasy) Screen Benzodiazepines Screen Cocaine Screen U Marijuana (THC) Screen Alcohol, Quantitative Blood Type Antibody Screen Current Medications Generic Name Dose Route Start Last Admin Trade Name Freq PRN Reason Stop Dose Admin Chlordiazepoxide HCl 25 mg 07/26/19 05:00 07/26/19 13:41 Librium - PO 07/26/19 21:01 25 mg Q8H [facility]AN[facility] Administration Chlordiazepoxide HCl 10 mg 07/29/19 00:00 Librium - PO 07/30/19 00:00 Q12H PRN Signs/symptoms of Withdrawal Chlordiazepoxide HCl 10 mg 07/26/19 13:35 Librium - PO 07/27/19 13:34 Q8H PRN Signs/symptoms of Withdrawal Chlordiazepoxide HCl 25 mg 07/26/19 13:00 07/26/19 15:01 Librium - PO 07/27/19 21:01 Not Given Q8H WANDA Chlordiazepoxide HCl 15 mg 07/28/19 05:00 Librium - PO 07/28/19 21:01 Q8H WAN[facility] Chlordiazepoxide HCl 10 mg 07/29/19 05:00 Librium - PO 07/29/19 21:01 Q8H [facility]AN[facility] Chlordiazepoxide HCl 10 mg 07/30/19 05:00 Librium - PO 07/30/19 05:01 ONCE ONE Folic Acid 1 mg 07/27/19 10:00 Folic Acid - PO DAILY [facility] Pantoprazole Sodium 80 mg/ 100 mls @ 10 mls/hr 07/26/19 10:45 07/26/19 11:30 Sodium Chloride IVPB 10 mls/hr Q10H [facility] Administration 8 MG/HR Octreotide Acetate 200 mcg/ 500 mls @ 20.833 mls/hr 07/26/19 10:30 07/26/19 16:31 Octreotide Acetate 1,000 mcg/ IVPB 20.833 mls/hr Dextrose ASDIR WANDA Administration Protocol Sodium Chloride 1,000 mls @ 150 mls/hr 07/26/19 10:45 07/26/19 16:32 Normal Saline - IV 150 mls/hr ASDIR WANDA Administration Multivitamins/Minerals/Vitamin C 1 tab 07/27/19 10:00 Tab-A-Vit - PO DAILY [facility] Thiamine HCl 200 mg 07/27/19 10:00 Vitamin B1 Injection - IVPB DAILY [facility] Home Medications Medication Instructions Recorded NK [No Known Home Medication] 05/11/18 ASSESSMENT/PLAN: 34 year old male with history of Polysubstance Abuse (Alcohol, Cocaine) presents with rapid onset epigastric pain with associated nausea/hematemesis/ hematochezia/epistaxis. 1. Acute GI Bleed FOBT positive. Long Hx of Alcohol abuse. Will cover with IV Protonix and Octreotide pending GI eval for EGD Unable to exclude varices at this time given extensive alcohol history. NPO/IV Fluids Serial H/H monitoring - will transfuse if necessary. 2. Acute Alcohol Withdrawal Librium as per [facility] Addiction medicine consult. MVI, Thiamine, Folic Acid. Electrolyte monitoring. 3. Elevated Transaminases, likely sec to Alcoholic Hepatitis due to Alcohol excess. Will monitor. 4. Polysubstance Abuse - Alcohol, cocaine Addiction Medicine Consult Possible candidate for [facility] s/p GI Ix. 5. Acute Rhabdomyolysis sec to cocaine use Aggressive IV hydration Repeat CPK in AM DVT Px - SCDs. No Heparin/Lovenox given active GI Bleed.
[2019-07-26 19:33] LABS: HEMATOCRIT 39.7 % (35.4-49); HEMOGLOBIN 13.2 GM/dL (11.7-16.9); MCH 29.6 pg (25.7-33.7); MCHC 33.3 g/dl (32.0-35.9); MEAN CELL VOLUME 88.7 fl (80-96); MEAN PLT VOLUME 8.6 fl (7.5-11.1); PLATELET COUNT 296 K/MM3 (134-434); RBC 4.48 M/mm3 (4.00-5.60); WHITE BLOOD COUNT 7.9 K/mm3 (4.0-10.0)
[2019-07-26] MEDS: OCTREOTIDE ACETATE 200 MCG, OCTREOTIDE ACETATE 1,000 MCG in DEXTROSE 5%-WATER - 496 ML IVPB SCH (21:50)
[2019-07-27] MEDS ORDERED: chlordiazePOXIDE 5 MG CAPSULE PO SCH (05:00)
[2019-07-27] MEDS: OCTREOTIDE ACETATE 200 MCG, OCTREOTIDE ACETATE 1,000 MCG in DEXTROSE 5%-WATER - 496 ML IVPB SCH (05:22)
[2019-07-27] MEDS: chlordiazePOXIDE HCL 25 MG CAPSULE PO SCH ×2 (05:22→13:05)
[2019-07-27] MEDS ORDERED: PANTOPRAZOLE SODIUM 80 MG in SODIUM CHLORIDE 100 ML IVPB SCH (06:45)
[2019-07-27 07:43] LABS: BASO % 0.6 % (0-2.0); EOS % 3.2 % (0-4.5); HEMATOCRIT 37.5 % (35.4-49); HEMOGLOBIN 12.7 GM/dL (11.7-16.9); LYMPH % 25.6 % (8-40); MCH 30.2 pg (25.7-33.7); MCHC 33.9 g/dl (32.0-35.9); MEAN CELL VOLUME 88.9 fl (80-96); MEAN PLT VOLUME 9.2 fl (7.5-11.1); MONO % 9.7 % (3.8-10.2); NEUT % 60.9 % (42.8-82.8); PLATELET COUNT 269 K/MM3 (134-434); RBC 4.22 M/mm3 (4.00-5.60); RDW 13.9 % (11.9-15.9); WHITE BLOOD COUNT 6.6 K/mm3 (4.0-10.0)
[2019-07-27 07:54] LABS: ALBUMIN 3.3 g/dl (3.4-5.0); BILIRUBIN,TOTAL 1.3 mg/dL (0.2-1); BLOOD UREA NITROGEN 6.2 mg/dL (7-18); CALCIUM 7.9 mg/dL (8.5-10.1); CREATININE 0.5 mg/dL (0.55-1.3); PHOSPHOROUS 2.5 mg/dL (2.5-4.9); POTASSIUM 3.8 mmol/L (3.5-5.1); TOT PROT 6.8 g/dl (6.4-8.2)
[2019-07-27] MEDS ORDERED: MULTIVITAMINS (DAILY MVI) TABLET (FP) PO SCH ×2 (10:00)
[2019-07-27] MEDS ORDERED: THIAMINE HCL 200 MG/2 ML VIAL IVPB SCH ×2 (10:00)
[2019-07-27] MEDS ORDERED: FOLIC ACID 1 MG TABLET (FP) PO SCH ×2 (10:00)
--- NOTE | 2019-07-27 12:30 | PN ---
Teaching Attending Note Name of Resident: Elio Eller ATTENDING PHYSICIAN STATEMENT I saw and evaluated the patient. I reviewed the resident's note and discussed the case with the resident. I agree with the resident's findings and plan as documented. SUBJECTIVE:asymptomatic. states he is no longer nauseated and no more episodes of hemetemsis. tolerated clears. denies Cp, SOB, fever, chills, N/V/C/D OBJECTIVE: Last Vital Signs Temp Pulse Resp BP Pulse Ox 98.4 F 60 20 136/61 95 07/27/19 10:00 07/27/19 10:00 07/27/19 10:00 07/27/19 10:07/27/19 09:00 General NAD HEENT no icterus CV S1 S2 RRR no murmur/rub/gallop Lungs CTA B/L no wheezing/rales/rhonchi Abdomen soft NT/ND Extremities no tremors ASSESSMENT AND PLAN: 34 year old male with history of Polysubstance Abuse (Alcohol, Cocaine) presents with rapid onset epigastric pain with associated nausea/hematemesis/ hematochezia/epistaxis. 1. Acute GI Bleed- no more episodes. Hgb stable. seen by GI and no need for EGD as inpatient. can follow up as outpatient. d/c PPI and octreotide ggt. 2. Elevated Bili- could be due to rhabdo vs obstruction vs not typical cholestasis pattern. check RUQ u/s. will repeat labs 3. acute rhabdo- due to cocaine use. now resolved. can d/c ivf 4. transaminitis= due to ETOH vs rhabdo. stable. u/s ordered. will trend 5. ETOH withdrawal- CIWA 0. on librium protocol. not interested in inpatient rehab. counselled on salvage determiner consequences of ETOH use. need for abstinence. will f/u outpatient AA 6.DVT ppx- Can start hep sq 7. plan for transfer to [facility] for continued detox pending results of u/s
--- NOTE | 2019-07-27 15:42 | DS ---
Physical Exam: SUBJECTIVE: Patient seen and examined OBJECTIVE: Vital Signs Period Temp Pulse Resp BP Sys/Maria Pulse Ox Last 24 Hr 97.2 F-99 F 56-74 18-20 97-136/52-77 95-96 PHYSICAL EXAM GENERAL: The patient is awake, alert, and fully oriented, in no acute distress. HEAD: Normal with no signs of trauma. EYES: PERRL, extraocular movements intact, sclera anicteric, conjunctiva clear. ENT: Ears normal, nares patent, oropharynx clear without exudates, moist mucous membranes. NECK: Trachea midline, full range of motion, supple. LUNGS: Breath sounds equal, clear to auscultation bilaterally, no wheezes, no crackles, no accessory muscle use. HEART: Regular rate and rhythm, S1, S2 without murmur, rub or gallop. ABDOMEN: Soft, nontender, nondistended, normoactive bowel sounds, no guarding, no rebound, no hepatosplenomegaly, no masses. EXTREMITIES: 2+ pulses, warm, well-perfused, no edema. NEUROLOGICAL: Cranial nerves II through XII grossly intact. Normal speech, gait not observed. PSYCH: Normal mood, normal affect. SKIN: Warm, dry, normal turgor, no rashes or lesions noted. LABS Laboratory Results - last 24 hr 07/26/19 07/27/19 07/27/19 19:08 06:48 06:48 WBC 7.9 6.6 RBC 4.48 4.22 Hgb 13.2 12.7 Hct 39.7 37.5 MCV 88.7 88.9 MCH 29.6 30.2 MCHC 33.3 33.9 RDW 14.0 13.9 Plt Count 296 269 MPV 8.6 9.2 Absolute Neuts (auto) 4.0 Neutrophils % 60.9 D Lymphocytes % 25.6 D Monocytes % 9.7 Eosinophils % 3.2 Basophils % 0.6 Nucleated RBC % 0 Sodium 138 Potassium 3.8 Chloride 104 Carbon Dioxide 25 Anion Gap 8 BUN 6.2 L Creatinine 0.5 L Est GFR (CKD-EPI)AfAm 165.02 Est GFR (CKD-EPI)NonAf 142.38 Random Glucose 95 Calcium 7.9 L Phosphorus 2.5 Magnesium 2.0 Total Bilirubin 1.3 H AST 136 H ALT 137 H Alkaline Phosphatase 79 Creatine Kinase 437 H Creatine Kinase Index 0.8 CK-MB (CK-2) 3.8 H Total Protein 6.8 Albumin 3.3 L HOSPITAL COURSE: Date of Admission:07/26/19 Date of Discharge: 07/27/19 Discharge Summary Reason For Visit: RHABDOMYOLYSIS Current Active Problems Rhabdomyolysis (Acute) Condition: Stable - Instructions Diet, Activity, Other Instructions: YOUR VISIT You came to the hospital because you were vomiting and had chest pain. You were given medication to help with you vomiting blood. Your blood was tested to make sure you were not having a heart attack. You did not have a heart attack. You were given fluids and medications to help you with these problems. Your blood work showed that your liver has some significant values that you should follow up on with a primary care doctor. It was found that you were experiencing some withdrawal and you were started on medication to treat this. You may now go to rehab to complete your rehabilitation. MEDICATIONS You came in with no home medications. You will now need to continue taking medications at rehab to complete care for withdrawal. Please begin taking a multivitamin every day. ADDITIONAL CARE Please make an appointment to see a primary care provider for care of your liver and for general health maintenance 1 week from today. You will need to have lab work done for repeat measurement of your blood levels. Since you do not have a primary care provider, you can call to make an appointment with the [facility] residents' clinic located at [address] [place] [address]. If you would like to continue seeing Dr. Eller, please ask for a Friday morning appointment. Please make an appointment to see a conveyor man, Dr. Howe, 1 week from today. ADDITIONAL INFORMATION Please call [phone] or come directly to the emergency department if you experience unusual headache, vision change, shortness of breath, chest pain, numbness, tingling, loss of alertness/awareness, loss of function, unusual bleeding or any alarming symptoms. Referrals: Ronny Henley MD [Staff Physician] - Dreeck Howe MD [Staff Physician] - Disposition: [facility]ENTION FACILITY - Home Medications Comprehensive Discharge Medication List: Ambulatory Orders Folic Acid - 1 mg PO DAILY tablet 07/27/19 Multivitamins [Multivit ([facility] Formulary)] 1 tab PO DAILY #0 tab 07/27/19 Multivitamins [Tab-A-Vit -] 1 tab PO DAILY #30 tab 07/27/19 Thiamine HCl [Vitamin B1 Injection -] 200 mg IVPB DAILY vial 07/27/19 ATTENDING PHYSICIAN STATEMENT I saw and evaluated the patient. I reviewed the resident's note and discussed the case with the resident. I agree with the resident's findings and plan as documented. SUBJECTIVE: OBJECTIVE: ASSESSMENT AND PLAN:
[2019-07-27 18:47] VITALS: BP 119/76; PULSE 61; TEMP 99
[2019-07-28] MEDS ORDERED: chlordiazePOXIDE HCL 10 MG CAPSULE PO PRN
[2019-07-28] MEDS ORDERED: chlordiazePOXIDE HCL 10 MG CAPSULE PO SCH (05:00)
[2019-07-28] MEDS ORDERED: chlordiazePOXIDE 5 MG CAPSULE PO SCH ×2 (05:00)
[2019-07-29] MEDS ORDERED: chlordiazePOXIDE HCL 10 MG CAPSULE PO PRN ×2
[2019-07-29] MEDS ORDERED: chlordiazePOXIDE HCL 10 MG CAPSULE PO ONE (05:00)
[2019-07-29] MEDS ORDERED: chlordiazePOXIDE HCL 10 MG CAPSULE PO SCH ×2 (05:00)
[2019-07-30] MEDS ORDERED: chlordiazePOXIDE HCL 10 MG CAPSULE PO ONE ×2 (05:00)
== END 2019-07-27 19:45 | disposition other institution (70) | DRG 253 ==
LOC: JER 22:17 → JERBED 07-26 06:48 → J8W 07-26 10:14 → J4S 07-26 20:55
PROVIDERS: ATTEND Internal Medicine
PROC: HZ2ZZZZ Detoxification Services for Substance Abuse Treatment (ICD-10-PCS; principal; 2019-07-26)
DX: K92.2 Gastrointestinal hemorrhage, unspecified (principal); R04.0 Epistaxis; F14.10 Cocaine abuse, uncomplicated; M62.82 Rhabdomyolysis; R74.0 Nonspecific elevation of levels of transaminase and lactic acid dehydrogenase [LDH]; F10.239 Alcohol dependence with withdrawal, unspecified
CPT/HCPCS: 36415; 76705-TC; 80053; 80307; 81003; 82272; 82550; 82553; 83690; 83735; 84100; 84484; 85025; 85027; 85610; 86850; 86900; 86901; 93005; 93010; 99285-25; J7030

== ENCOUNTER 2020-07-25 23:41 | Emergency (ER) | payer SELFPAY ==
[2020-07-26] MEDS ORDERED: LACTATED RINGERS SOLUTION 1000 ML INFUS.BAG IV ONE (00:23)
[2020-07-26] MEDS ORDERED: ONDANSETRON 4 MG/2 ML VIAL IVPUSH ONE (00:23)
--- NOTE | 2020-07-26 00:24 | PDOC ---
History of Present Illness - General Chief Complaint: Vomiting/Diarrhea Stated Complaint: VOMITING,DIARRHEA History Source: Patient Exam Limitations: No Limitations - History of Present Illness Initial Comments: 35 y/o male presenting to [facility] ER complaining of vomiting blood and small bloody pellets [place]. Started this evening after drinking a 24 case of beer. H/o similar about 8 months ago. Seen at this facility but declined detox. States he would be interested in help with alcohol use disorder tonight. Denies chest pain, SOB, fevers, abdominal pain, dysuria, hematuria, penile or testicular pain. Past History - Travel History Traveled outside of the country in the last 30 days: No Close contact w/someone who was outside of country & ill: No - Medical History Allergies/Adverse Reactions: Allergies Allergy/AdvReac Type Severity Reaction Status Date / Time No Known Allergies Allergy Verified 07/26/20 00:12 Home Medications: Ambulatory Orders Folic Acid - 1 mg PO DAILY tablet 07/27/19 Multivitamins [Multivit ([facility] Formulary)] 1 tab PO DAILY #0 tab 07/27/19 Multivitamins [Tab-A-Vit -] 1 tab PO DAILY #30 tab 07/27/19 Thiamine HCl [Vitamin B1 Injection -] 200 mg IVPB DAILY vial 07/27/19 Other medical history: Alcohol and Cocaine Use disorders - Surgical History Appendectomy: Yes - Psycho-Social/Smoking History Smoking History: Never smoked Information on smoking cessation initiated: No - Substance Abuse Hx (Audit-C & DAST Scrn) How often the patient has a drink containing alcohol: 2-4 times / month Number of drinks the patient has on a typical day: 3 or 4 How often the patient has six or more drinks on one occasion: Monthly Score: In Men: 4 or > Positive; In Women: 3 or > Positive: 5 Screen Result (Pos requires Nsg. Audit-10AR): Positive In the last yr the pt used illegal drug/Rx for NonMed reason: No Score: Yes response is considered Positive: 0 Screen Result (Positive result requires Nsg. DAST-10): Negative Review of Systems - Review of Systems Able to Perform ROS?: Yes Comments:: 10 point review of systems completed. All systems negative except as noted abov e. *Physical Exam - Vital Signs Last Vital Signs Temp Pulse Resp BP Pulse Ox 98.1 F 98 H 18 133/80 99 07/25/20 23:45 07/25/20 23:45 07/25/20 23:45 07/25/20 23:45 07/25/20 23:45 - Physical Exam General Appearance: Yes: Appropriately Dressed. No: Apparent Distress HEENT: positive: Normal Voice Neck: positive: Trachea midline, Supple Respiratory/Chest: positive: Other (Speaking in multi-word responses without pausing.). negative: Respiratory Distress Cardiovascular: positive: Regular Rate Gastrointestinal/Abdominal: positive: Flat, Hepatomegaly. negative: Tender, Pulsatile Mass, Distended, Guarding, Rebound, Tenderness Rectal Exam: positive: heme negative stool, normal exam, normal rectal tone. negative: decreased tone, hemorrhoids Musculoskeletal: positive: Normal Inspection Extremity: positive: Normal Capillary Refill, Normal Range of Motion Integumentary: positive: Normal Color, Dry, Warm Neurologic: positive: Fully Oriented, Alert, Normal Mood/Affect, Normal Response ED Treatment Course - LABORATORY CBC & Chemistry Diagram: 07/26/20 00:54 07/26/20 00:54 - RADIOLOGY Radiograph Interpretation: CTA of Abd/Pelvis THIS IS A PRELIMINARY REPORT DATE OF SERVICE: 2020-07-26 04:09:14 IMAGES: [id number] EXAM: ABDOMEN/PELVIS CTA W/WO CONTR HISTORY: Alcohol abuse with hematemesis and hematochezia COMPARISON: None. FINDINGS: Lung bases are clear. The visualized cardiac chambers are normal size and configuration. The liver is fatty. Normal gallbladder, pancreas, spleen, adrenal glands and kidneys. The stomach and abdominal small and large bowel are normal. No evidence of acute GI bleeding. There is no aortic dissection or aneurysm. There is no significant retroperitone al lymphadenopathy. The pelvic small and large bowel are normal. There is no evidence of appendiciti s although the only question was visualized. The urinary bladder is mildly inflamed. No bladder stones. The prostate gland is normal. No pelvic free fluid is identified. There is no significant pelvic lymphadenopathy. IMPRESSION: Fatty liver. Mild cystitis which can be correlated with urinalysis. One or more of the following dose reduction techniques were used: automated exposure control, adjustment of the mA and/or kV according to patient size, use of iterative reconstructive technique. THIS DOCUMENT HAS BEEN ELECTRONICALLY SIGNED Jacky Jeter MD 07/26/2020 05:19 EST Medical Decision Making - Medical Decision Making 35 y/o male presenting with self reported hematemesis and hematochezia after drinking 24 beers. Neither symptom was witnessed or discovered on the physical exam. No signs of trauma. Vitals unremarkable above hypotension or tachycardia. Labs unremarkable for anemia or other significant electrolyte derangement. 26 Jul 2020 04:57 AM Pt reassessed. Reports a mild headache. Outstretched hands non-tremulous. No tongue fasciculations. Reviewed abdomen and pelvis CTA with and without contrast. Fatty liver. Noted suggestion for acute cystitis but pt denies any urinary symptoms. 26 Jul 2020 06:45 AM Pt reassessed. Found sleeping. Easily arousable. Repeat abdominal exam remained soft, nondistended, and nontender. Pt requested help with alcohol abuse. Will transfer to [facility] via database security expert for further evaluation. Discussed physical exam findings, laboratory results, and radiologic findings with pt. Answered all questions. Provided return precautions. pt expressed verbal understanding and agreement with plan to discharge home with outpatient follow up. Provided copies of todays results. Case discussed with ED Attending Dr. Dominguez. Micheal Hull M.D., PGY3 Emergency Medicine Residency Discharge - Discharge Information Problems reviewed: Yes Clinical Impression/Diagnosis: Alcohol abuse Vomiting Qualifiers: Vomiting type: unspecified Vomiting Intractability: non-intractable Nausea presence: without nausea Qualified Code(s): R11.11 - Vomiting without nausea Condition: Fair Disposition: HOME - Admission No - Follow up/Referral - Patient Discharge Instructions Patient Printed Discharge Instructions: DI for Alcohol Abuse, DI for Alcoholic Gastritis Additional Instructions: You were seen tonight for vomiting blood and bloody stools. Your labs and CT scan did not show any emergent cause of your symptoms. Everything is likely related to your drinking. You need to stop. You need to follow up with a insurance sales agent for your fatty liver. I have entered a referral for you to see Dr. Cueto. You will need to call to make an appointment. The number is included in this packet. A copy of todays results are attached to this packet. Take it to the appointment so your doctor can review them. You requested help with your drinking. This is a great first step! We wish you the best of luck at [facility]! Return to the ED for new or worsening symptoms. Print Language: POLISH - Post Discharge Activity
--- NOTE | 2020-07-26 00:26 | PDOC ---
Attending Attestation - Resident Resident Name: Micheal Hull - ED Attending Attestation I have performed the following: I have examined & evaluated the patient, The case was reviewed & discussed with the resident, I agree w/resident's findings & plan - HPI HPI: 07/26/20 04:52 see resident hpi - Physicial Exam PE: 07/26/20 04:52 see resident exam - Medical Decision Making 07/26/20 04:52 35-year-old male with history of alcohol abuse drinking approximately 24 cans of beer a day by his own admission now with episodes of nausea vomiting and loose stools, all blood-tinged Plan for labs and CTA of the abdomen and pelvis We will plan for medical clearance with referral to detox, outpatient GI follow- up Discharge - Discharge Information Problems reviewed: Yes Clinical Impression/Diagnosis: Vomiting, Alcohol abuse Condition: Fair - Follow up/Referral - Patient Discharge Instructions - Post Discharge Activity
[2020-07-26 00:27] VITALS: BP 133/80; PULSE 98; TEMP 98.1; BMI 30.9
[2020-07-26] MEDS ORDERED: FAMOTIDINE 20 MG/50 ML IVPB 20 MG/50 ML MG IVPB ONE ×3 (00:53→02:17)
[2020-07-26 01:19] LABS: BASO % 1.3 % (0-2.0); EOS % 3.7 % (0-4.5); HEMATOCRIT 42.8 % (35.4-49); HEMOGLOBIN 14.2 GM/dL (11.7-16.9); LYMPH % 45.1 % (8-40); MCH 29.6 pg (25.7-33.7); MCHC 33.1 g/dl (32.0-35.9); MEAN CELL VOLUME 89.5 fl (80-96); MEAN PLT VOLUME 9.6 fl (7.5-11.1); NEUT % 39.9 % (42.8-82.8); PLATELET COUNT 239 K/MM3 (134-434); RBC 4.78 M/mm3 (4.00-5.60); RDW 14.9 % (11.9-15.9); WHITE BLOOD COUNT 5.6 K/mm3 (4.0-10.0)
[2020-07-26 01:30] LABS: ALBUMIN 4.3 g/dl (3.4-5.0); BILIRUBIN,TOTAL 0.3 mg/dL (0.2-1); BLOOD UREA NITROGEN 3.7 mg/dL (7-18); CALCIUM 8.4 mg/dL (8.5-10.1); CREATININE 0.6 mg/dL (0.55-1.3); POTASSIUM 5.5 mmol/L (3.5-5.1); TOT PROT 8.2 g/dl (6.4-8.2)
[2020-07-26] MEDS ORDERED: KETOROLAC TROMETHAMINE 15 MG/ML VIAL IVPUSH ONE (04:58)
--- NOTE | 2020-07-26 09:10 | EKG ---
Test Reason : Blood Pressure : / mmHG Vent. Rate : 078 BPM Atrial Rate : 078 BPM P-R Int : 174 ms QRS Dur : 098 ms QT Int : 368 ms P-R-T Axes : 068 058 032 degrees QTc Int : 419 ms NORMAL SINUS RHYTHM NORMAL ECG WHEN COMPARED WITH ECG OF 26-JUL-2019 13:00, QT HAS SHORTENED Confirmed by MD VALERY, LENO ([id number]) on 07/26/2020 9:10:29 AM Referred By: Confirmed By:LENO RASMUSSEN MD
== END 2020-07-26 07:10 | disposition home or self-care (01) ==
LOC: JER 23:41
PROC: 3E033NZ Introduction of Analgesics, Hypnotics, Sedatives into Peripheral Vein, Percutaneous Approach (ICD-10-PCS; principal; 2020-07-26)
PROC: 3E033GC Introduction of Other Therapeutic Substance into Peripheral Vein, Percutaneous Approach (ICD-10-PCS; 2020-07-26)
DX: F10.10 Alcohol abuse, uncomplicated (principal); R11.11 Vomiting without nausea
CPT/HCPCS: 36415; 71046-TC-FY; 74174-TC; 80053; 80307; 82550; 82553; 83690; 84484; 85025; 93005; 93010; 99285-25

== ENCOUNTER 2024-06-01 16:15 | Inpatient (IN) | payer OTHER ==
[2024-06-01] MEDS ORDERED: MAG HYDROX/AL HYDROX/SIMETH 30 ML UNIT-DOSE CUP ONE (20:04)
[2024-06-01] MEDS ORDERED: ONDANSETRON 4 MG/2 ML VIAL ONE (20:04)
[2024-06-01] MEDS ORDERED: FAMOTIDINE 20 MG/50 ML IVPB 20 MG/50 ML MG IVPB ONE (20:04)
[2024-06-01] MEDS: SODIUM CHLORIDE 0.9% 500 ML INFUS.BAG IV ONE (21:10)
[2024-06-01] MEDS: ONDANSETRON 4 MG/2 ML VIAL IVPUSH ONE (21:10)
[2024-06-01] MEDS: FAMOTIDINE 20 MG/50 ML IVPB 20 MG/50 ML MG IVPB ONE (21:10)
[2024-06-01] MEDS: MAG HYDROX/AL HYDROX/SIMETH 30 ML UNIT-DOSE CUP PO ONE (21:16)
[2024-06-01 21:40] LABS: POTASSIUM 3.7 mmol/L (3.5-5.1)
[2024-06-01 21:41] LABS: MAGNESIUM 2.3 mg/dL (1.8-2.4)
[2024-06-01 21:42] LABS: BLOOD UREA NITROGEN 7.1 mg/dL (7-18); CALCIUM 9.7 mg/dL (8.5-10.1)
[2024-06-01 21:43] LABS: BASO % 0.5 % (0-2.0); EOS % 0.3 % (0-4.5); HEMATOCRIT 40.5 % (35.4-49); HEMOGLOBIN 13.5 GM/dL (11.7-16.9); LYMPH % 7.8 % (8-40); MCH 30.1 pg (25.7-33.7); MCHC 33.2 g/dl (32.0-35.9); MEAN CELL VOLUME 90.5 fl (80-96); MEAN PLT VOLUME 8.3 fl (7.5-11.1); MONO % 5.8 % (3.8-10.2); NEUT % 85.6 % (42.8-82.8); PLATELET COUNT 329 10^3/uL (134-434); RBC 4.47 M/mm3 (4.00-5.60); RDW 16.7 % (11.9-15.9); WHITE BLOOD COUNT 14.7 K/mm3 (4.0-10.0)
[2024-06-01 21:44] LABS: ALBUMIN 3.6 g/dl (3.4-5.0); INR 1.21 (0.83-1.09); PROTHROMBIN TIME (PATIENT) 13.8 SEC (9.7-13.0)
[2024-06-01 21:45] LABS: BILIRUBIN,DIRECT 0.8 mg/dL (0.0-0.2); CREATININE 0.6 mg/dL (0.55-1.3)
[2024-06-01 21:46] LABS: PHOSPHOROUS 4.7 mg/dL (2.5-4.9); TOT PROT 9.3 g/dl (6.4-8.2)
[2024-06-01 21:47] LABS: ACTIVATED PTT 31.2 SECONDS (25.2-36.5)
[2024-06-01 21:48] LABS: BILIRUBIN,TOTAL 1.4 mg/dL (0.2-1)
[2024-06-02] MEDS ORDERED: MAG HYDROX/AL HYDROX/SIMETH 30 ML UNIT-DOSE CUP ONE (00:48)
[2024-06-02] MEDS: LACTATED RINGERS SOLUTION 1000 ML INFUS.BAG IV ONE (01:05)
[2024-06-02] MEDS: LACTATED RINGERS SOLUTION 1,000 ML/1,000 ML INFUS.BAG IV SCH ×2 (01:25→19:00)
[2024-06-02] MEDS: MAG HYDROX/AL HYDROX/SIMETH 30 ML UNIT-DOSE CUP PO SCH (01:25)
[2024-06-02] MEDS ORDERED: METOCLOPRAMIDE HCL INJECTION 10 MG/2 ML VIAL ONE (02:36)
[2024-06-02 02:39] LABS: INR 1.28 (0.83-1.09); PROTHROMBIN TIME (PATIENT) 14.6 SEC (9.7-13.0)
[2024-06-02] MEDS: METOCLOPRAMIDE HCL INJECTION 10 MG/2 ML VIAL IVPUSH PRN (02:42)
[2024-06-02 02:43] LABS: PH,URINE 8.5 (5.0-8.0); URINE APPEARANCE CLEAR; URINE BILIRUBIN NEGATIVE (NEGATIVE); URINE COLOR YELLOW; URINE GLUCOSE (UA) NEGATIVE (NEGATIVE); URINE KETONE TRACE (NEGATIVE); URINE LEUK ESTERASE NEGATIVE (NEGATIVE); URINE NITRITE NEGATIVE (NEGATIVE); URINE PROTEIN NEGATIVE (NEGATIVE)
[2024-06-02 02:52] LABS: COCAINE, UR NEGATIVE (NEGATIVE); PHENCYCLIDINE,URINE NEGATIVE (NEGATIVE); URINE AMPHETAMINES NEGATIVE (NEGATIVE)
[2024-06-02 02:53] LABS: METHADONE, UR NEGATIVE (NEGATIVE); OPIATES, URI NEGATIVE (NEGATIVE); URINE BENZODIAZEPINES NEGATIVE (NEGATIVE)
[2024-06-02 04:33] VITALS: RESP 18; BMI 23.3
[2024-06-02] MEDS: FAMOTIDINE 20 MG TABLET PO ONE (05:32)
[2024-06-02] MEDS: THIAMINE 100 MG TABLET PO SCH (09:24)
[2024-06-02] MEDS: FOLIC ACID 1 MG TABLET (FP) PO SCH (09:25)
[2024-06-02] MEDS: FAMOTIDINE 20 MG/50 ML IVPB 20 MG/50 ML MG IVPB SCH (09:25)
[2024-06-02] MEDS ORDERED: TRIMETHOBENZAMIDE HCL 200MG/2ML INJ IM PRN (10:10)
[2024-06-02 16:40] LABS: URINE BARBITURATES NEGATIVE (NEGATIVE)
[2024-06-02] MEDS: ACETAMINOPHEN 325 MG TABLET (FP) PO PRN (17:37)
[2024-06-03 09:30] LABS: BASO % 1.8 % (0-2.0); EOS % 5.1 % (0-4.5); HEMATOCRIT 34.3 % (35.4-49); HEMOGLOBIN 11.4 GM/dL (11.7-16.9); MCH 30.3 pg (25.7-33.7); MCHC 33.3 g/dl (32.0-35.9); MEAN PLT VOLUME 8.1 fl (7.5-11.1); MONO % 7.2 % (3.8-10.2); NEUT % 71.9 % (42.8-82.8); PLATELET COUNT 249 10^3/uL (134-434); RBC 3.77 M/mm3 (4.00-5.60); RDW 16.5 % (11.9-15.9)
[2024-06-03 09:46] LABS: POTASSIUM 3.5 mmol/L (3.5-5.1)
[2024-06-03] MEDS ORDERED: MAG HYDROX/AL HYDROX/SIMETH 30 ML UNIT-DOSE CUP PO PRN (09:47)
[2024-06-03 09:58] LABS: BLOOD UREA NITROGEN 5.2 mg/dL (7-18); CALCIUM 8.8 mg/dL (8.5-10.1); PHOSPHOROUS 3.8 mg/dL (2.5-4.9)
[2024-06-03 09:59] LABS: ALBUMIN 2.8 g/dl (3.4-5.0); BILIRUBIN,TOTAL 1.4 mg/dL (0.2-1); TOT PROT 6.9 g/dl (6.4-8.2)
[2024-06-03 10:02] LABS: CREATININE 0.5 mg/dL (0.55-1.3)
[2024-06-03 10:11] VITALS: BP 124/78; PULSE 74; TEMP 98.4
== END 2024-06-03 15:39 | disposition home or self-care (01) | DRG 774 ==
LOC: JER 16:15 → JERBED 23:51 → J5S 06-02 02:51 → OBSVTOIN 06-02 09:55
PROVIDERS: ADMIT Internal Medicine; ATTEND Internal Medicine
DX: F10.230 Alcohol dependence with withdrawal, uncomplicated (principal); K29.20 Alcoholic gastritis without bleeding; F14.10 Cocaine abuse, uncomplicated; K76.0 Fatty (change of) liver, not elsewhere classified; K80.20 Calculus of gallbladder without cholecystitis without obstruction
CPT/HCPCS: 36415; 71046-TC-FY; 74177-TC; 76705-TC; 80053; 80307; 81003; 82140; 82248; 83036; 83690; 83735; 84100; 84484; 85025; 85610; 85730; 86707; 86708; 86850; 86900; 86901; 87350; 87517; 93005; 93010; 99285-25; G0378; Q9967

== ENCOUNTER 2024-11-29 09:05 | Inpatient (IN) | payer OTHER ==
[2024-11-29] MEDS ORDERED: LACTATED RINGERS SOLUTION 1000 ML INFUS.BAG IV ONE (09:58)
[2024-11-29] MEDS ORDERED: ACETAMINOPHEN INJECTION 100 ML ONE (10:19)
[2024-11-29] MEDS ORDERED: ONDANSETRON 4 MG/2 ML VIAL ONE ×2 (10:19→15:21)
[2024-11-29] MEDS: ONDANSETRON 4 MG/2 ML VIAL IVPB ONE (10:40)
[2024-11-29] MEDS: ACETAMINOPHEN 1000 MG/100 ML BAG IVPB ONE (10:45)
[2024-11-29] MEDS: SODIUM CHLORIDE 0.9% 500 ML INFUS.BAG IV ONE (10:45)
[2024-11-29 11:01] LABS: BASO % 0.4 % (0-2.0); EOS % 1.1 % (0-4.5); HEMOGLOBIN 12.4 GM/dL (11.7-16.9); LYMPH % 13.5 % (8-40); MCH 29.8 pg (25.7-33.7); MCHC 33.5 g/dl (32.0-35.9); MEAN CELL VOLUME 88.8 fl (80-96); MEAN PLT VOLUME 8.8 fl (7.5-11.1); PLATELET COUNT 271 10^3/uL (134-434); RBC 4.16 M/mm3 (4.00-5.60); RDW 14.1 % (11.9-15.9); WHITE BLOOD COUNT 8.3 K/mm3 (4.0-10.0)
[2024-11-29 11:09] LABS: INR 1.21 (0.83-1.09); PROTHROMBIN TIME (PATIENT) 13.6 SEC (9.7-13.0)
[2024-11-29 11:12] LABS: ACTIVATED PTT 31.9 SECONDS (25.2-36.5)
[2024-11-29 11:29] LABS: POTASSIUM 3.2 mmol/L (3.5-5.1)
[2024-11-29 11:33] LABS: ALBUMIN 3.8 g/dl (3.4-5.0); BLOOD UREA NITROGEN 4.8 mg/dL (7-18); CALCIUM 9.3 mg/dL (8.5-10.1)
[2024-11-29 11:36] LABS: CREATININE 0.7 mg/dL (0.55-1.3)
[2024-11-29 11:38] LABS: BILIRUBIN,TOTAL 1.6 mg/dL (0.2-1)
[2024-11-29 12:44] LABS: MAGNESIUM 1.6 mg/dL (1.8-2.4)
[2024-11-29] MEDS ORDERED: morphine SULFATE 4 MG/ML VIAL ONE (13:02)
[2024-11-29] MEDS: morphine CARPU-JECT 4 MG/1 ML DISP.SYRIN IVPUSH ONE (13:06)
[2024-11-29] MEDS ORDERED: POTASSIUM CHLORIDE ORAL LIQUID 20 MEQ/15 ML ONE (14:21)
[2024-11-29] MEDS ORDERED: MAGNESIUM SULF 50% (8.12 MEQ/2 ML-1 GM VIAL) ONE (14:21)
[2024-11-29] MEDS ORDERED: PIPERACILLIN/TAZOB 3.375 GM 50 ML IVPB SCH ×2 (14:30)
[2024-11-29] MEDS: MAGNESIUM SULF 50% (8.12 MEQ/2 ML-1 GM VIAL) IVPB ONE (14:32)
[2024-11-29] MEDS: POTASSIUM CHLORIDE ORAL LIQUID 20 MEQ/15 ML PO ONE (14:32)
[2024-11-29] MEDS ORDERED: LORazepam 2 MG/ML SDV VIAL IVPUSH PRN (14:47)
[2024-11-29] MEDS ORDERED: PIPERACILLIN/TAZOB 3.375 GM 3.375 GM/50 ML BAG IVPB ONE (15:16)
[2024-11-29] MEDS: PIPERACILLIN/TAZOB 3.375 GM 3.375 GM in DEXTROSE 5%-WATER - 50 ML IVPB SCH (15:20)
[2024-11-29] MEDS: ONDANSETRON 4 MG/2 ML VIAL IVPUSH PRN (15:24)
[2024-11-29] MEDS: LACTATED RINGERS SOLUTION 1,000 ML/1,000 ML INFUS.BAG IV SCH (17:16)
[2024-11-29] MEDS: PANTOPRAZOLE SODIUM 40 MG VIAL IVPUSH SCH (19:51)
[2024-11-30] MEDS: ACETAMINOPHEN 1000 MG/100 ML BAG IVPB PRN (06:06)
[2024-11-30] MEDS: MULTIVITAMINS (DAILY MVI) TABLET (FP) PO SCH (09:45)
[2024-11-30] MEDS: PIPERACILLIN/TAZOB 3.375 GM 50 ML IVPB SCH (09:45)
[2024-11-30] MEDS ORDERED: PANTOPRAZOLE 40 MG TABLET PO SCH (10:00)
[2024-11-30 10:02] LABS: BASO % 0.4 % (0-2.0); EOS % 2.9 % (0-4.5); HEMOGLOBIN 11.1 GM/dL (11.7-16.9); LYMPH % 16.6 % (8-40); MCH 29.3 pg (25.7-33.7); MCHC 32.6 g/dl (32.0-35.9); MEAN CELL VOLUME 89.8 fl (80-96); MEAN PLT VOLUME 9.3 fl (7.5-11.1); MONO % 8.6 % (3.8-10.2); NEUT % 71.5 % (42.8-82.8); PLATELET COUNT 212 10^3/uL (134-434); RBC 3.79 M/mm3 (4.00-5.60); WHITE BLOOD COUNT 7.2 K/mm3 (4.0-10.0)
[2024-11-30] MEDS: THIAMINE HCL 200 MG/2 ML VIAL IVPB SCH (10:22)
[2024-11-30 10:26] LABS: POTASSIUM 3.9 mmol/L (3.5-5.1)
[2024-11-30 10:37] LABS: BLOOD UREA NITROGEN 6.1 mg/dL (7-18)
[2024-11-30 10:39] LABS: BILIRUBIN,TOTAL 1.7 mg/dL (0.2-1); TOT PROT 7.6 g/dl (6.4-8.2)
[2024-11-30 10:40] LABS: ALBUMIN 3.2 g/dl (3.4-5.0); CALCIUM 8.9 mg/dL (8.5-10.1); CREATININE 0.6 mg/dL (0.55-1.3); MAGNESIUM 1.7 mg/dL (1.8-2.4)
[2024-11-30 10:41] LABS: PHOSPHOROUS 4.1 mg/dL (2.5-4.9)
[2024-11-30] MEDS: MAGNESIUM 2GM/50ML STERILE WATER IVPB IVPB ONE (14:37)
[2024-11-30 19:59] LABS: HIV INTERPRETATION NEGATIVE (NEGATIVE)
[2024-12-01] MEDS: SODIUM CHLORIDE 1,000 ML IV SCH (09:13)
[2024-12-01 12:02] LABS: BASO % 0.5 % (0-2.0); EOS % 2.3 % (0-4.5); HEMATOCRIT 35.5 % (35.4-49); HEMOGLOBIN 11.5 GM/dL (11.7-16.9); LYMPH % 15.7 % (8-40); MCH 29.3 pg (25.7-33.7); MCHC 32.5 g/dl (32.0-35.9); MEAN CELL VOLUME 90.2 fl (80-96); MEAN PLT VOLUME 8.9 fl (7.5-11.1); MONO % 8.5 % (3.8-10.2); PLATELET COUNT 212 10^3/uL (134-434); RBC 3.93 M/mm3 (4.00-5.60); RDW 14.3 % (11.9-15.9); WHITE BLOOD COUNT 8.1 K/mm3 (4.0-10.0)
[2024-12-01 12:06] LABS: INR 1.21 (0.83-1.09); PROTHROMBIN TIME (PATIENT) 13.6 SEC (9.7-13.0)
[2024-12-01 12:20] LABS: POTASSIUM 3.9 mmol/L (3.5-5.1)
[2024-12-01 12:23] LABS: BLOOD UREA NITROGEN 7.8 mg/dL (7-18); CALCIUM 8.7 mg/dL (8.5-10.1); MAGNESIUM 1.7 mg/dL (1.8-2.4)
[2024-12-01 12:24] LABS: ALBUMIN 3.3 g/dl (3.4-5.0)
[2024-12-01 12:27] LABS: PHOSPHOROUS 3.8 mg/dL (2.5-4.9)
[2024-12-01 12:28] LABS: CREATININE 0.6 mg/dL (0.55-1.3)
[2024-12-01 12:30] LABS: BILIRUBIN,TOTAL 1.1 mg/dL (0.2-1); TOT PROT 7.6 g/dl (6.4-8.2)
[2024-12-01] MEDS: DEXTROSE 50%-WATER 25 GM/50 ML DISP.SYRIN IVPUSH ONE (14:49)
[2024-12-01] MEDS: MAGNESIUM 2GM/50ML STERILE WATER IVPB IVPB ONE (14:54)
[2024-12-01] MEDS: PIPERACILLIN/TAZOB 3.375 GM 3.375 GM in DEXTROSE 5%-WATER - 50 ML IVPB SCH (17:32)
[2024-12-02 09:19] LABS: POTASSIUM 3.7 mmol/L (3.5-5.1)
[2024-12-02 09:26] LABS: CALCIUM 8.7 mg/dL (8.5-10.1)
[2024-12-02 09:27] LABS: ALBUMIN 3.2 g/dl (3.4-5.0); BLOOD UREA NITROGEN 5.5 mg/dL (7-18); MAGNESIUM 1.7 mg/dL (1.8-2.4)
[2024-12-02 09:30] LABS: CREATININE 0.7 mg/dL (0.55-1.3)
[2024-12-02 09:32] LABS: BILIRUBIN,TOTAL 1.2 mg/dL (0.2-1); TOT PROT 7.4 g/dl (6.4-8.2)
[2024-12-02] MEDS: MAGNESIUM 2GM/50ML STERILE WATER IVPB IVPB ONE (09:43)
[2024-12-02] MEDS: DEXTROSE 5%-NORMAL SALINE 1,000 ML IV SCH (13:13)
[2024-12-03 11:43] LABS: CHLORIDE 109 mmol/L (98-107); POTASSIUM 3.4 mmol/L (3.5-5.1); SODIUM 141 mmol/L (136-145)
[2024-12-03 11:45] LABS: ANION GAP 5 mmol/L (4-13); CALCIUM 8.6 mg/dL (8.5-10.1); CO2 27 mmol/L (21-32); GLUCOSE,RANDOM 93 mg/dL (74-106)
[2024-12-03 11:46] LABS: MAGNESIUM 1.7 mg/dL (1.8-2.4)
[2024-12-03 11:48] LABS: BLOOD UREA NITROGEN 2.6 mg/dL (7-18)
[2024-12-03 11:49] LABS: CREATININE 0.6 mg/dL (0.55-1.3); PHOSPHOROUS 3.4 mg/dL (2.5-4.9)
[2024-12-03] MEDS: KCL 10 MEQ IVPB 10 MEQ/100 ML INFUS.BAG IVPB SCH (15:02)
[2024-12-03] MEDS: POTASSIUM CHLORIDE ORAL LIQUID 20 MEQ/15 ML PO ONE (16:41)
[2024-12-03] MEDS: MAGNESIUM 2GM/50ML STERILE WATER IVPB IVPB ONE (21:18)
[2024-12-04] MEDS ORDERED: oxyCODONE HCL 5 MG TABLET PO PRN (07:36)
[2024-12-04] MEDS: THIAMINE 100 MG TABLET PO SCH (09:07)
[2024-12-04] MEDS: FOLIC ACID 1 MG TABLET (FP) PO SCH (09:07)
[2024-12-04 11:01] LABS: BASO % 0.6 % (0-2.0); EOS % 2.6 % (0-4.5); HEMATOCRIT 33.1 % (35.4-49); HEMOGLOBIN 10.9 GM/dL (11.7-16.9); LYMPH % 21.2 % (8-40); MCH 29.6 pg (25.7-33.7); MCHC 33.1 g/dl (32.0-35.9); MEAN CELL VOLUME 89.6 fl (80-96); MEAN PLT VOLUME 9.1 fl (7.5-11.1); NEUT % 62.6 % (42.8-82.8); PLATELET COUNT 187 10^3/uL (134-434); RBC 3.69 M/mm3 (4.00-5.60); RDW 14.2 % (11.9-15.9); WHITE BLOOD COUNT 6.7 K/mm3 (4.0-10.0)
[2024-12-04 11:23] LABS: POTASSIUM 3.7 mmol/L (3.5-5.1)
[2024-12-04 11:28] LABS: ALBUMIN 3.3 g/dl (3.4-5.0); BLOOD UREA NITROGEN 5.7 mg/dL (7-18)
[2024-12-04 11:29] LABS: CALCIUM 8.8 mg/dL (8.5-10.1)
[2024-12-04 11:32] LABS: CREATININE 0.6 mg/dL (0.55-1.3)
[2024-12-04 11:33] LABS: BILIRUBIN,TOTAL 0.6 mg/dL (0.2-1); TOT PROT 7.5 g/dl (6.4-8.2)
[2024-12-04] MEDS: ENOXAPARIN NA (PORCINE) 40 MG/0.4 ML DISP.SYRIN SQ SCH (13:23)
[2024-12-04] MEDS: IBUPROFEN 600 MG TABLET (FP) PO PRN (22:22)
[2024-12-06 10:18] LABS: INR 1.18 (0.83-1.09); PROTHROMBIN TIME (PATIENT) 13.5 SEC (9.7-13.0)
[2024-12-06 11:35] LABS: ALBUMIN 3.5 g/dl (3.4-5.0)
[2024-12-06 11:36] LABS: BLOOD UREA NITROGEN 8.9 mg/dL (7-18)
[2024-12-06 11:39] LABS: CREATININE 0.7 mg/dL (0.55-1.3)
[2024-12-06 11:40] LABS: BILIRUBIN,TOTAL 0.9 mg/dL (0.2-1)
[2024-12-06] MEDS ORDERED: ONDANSETRON 4 MG/2 ML VIAL IVPUSH PRN ×2 (13:24→16:00)
[2024-12-06] MEDS ORDERED: LACTATED RINGERS SOLUTION 1,000 ML IV SCH (13:30)
[2024-12-06] MEDS ORDERED: HEPARIN NA (PORCINE) 5,000 UNITS/ML 1ML VIAL ONE (13:35)
[2024-12-06] MEDS ORDERED: BUPIVACAINE HCL/PF 0.25% (2.5MG/ML) 10 ML VIAL ONE (13:35)
[2024-12-06] MEDS ORDERED: HYDROmorphone HCl 2 MG/ML VIAL ONE (13:50)
[2024-12-06] MEDS ORDERED: SUCCINYLCHOLINE CHLORIDE 200 MG/10 ML SYRINGE ONE (13:51)
[2024-12-06] MEDS ORDERED: PROPOFOL 40 ML ONE (13:51)
[2024-12-06] MEDS ORDERED: ROCURONIUM BROMIDE 50 MG/5 ML SYRINGE ONE (13:51)
[2024-12-06] MEDS ORDERED: MIDAZOLAM HCL 2 MG/2 ML SINGLE DOSE VIAL ONE (13:52)
[2024-12-06] MEDS: HEPARIN NA (PORCINE) 5,000 UNITS/ML 1ML VIAL SQ ONE (14:04)
[2024-12-06] MEDS ORDERED: IBUPROFEN 600 MG TABLET (FP) PO PRN (16:00)
[2024-12-06] MEDS: ACETAMINOPHEN 325 MG TABLET (FP) PO SCH (16:00)
[2024-12-06 17:06] VITALS: BMI 26.0
[2024-12-06] MEDS: LACTATED RINGERS SOLUTION 1,000 ML IV SCH (18:59)
[2024-12-06 21:23] VITALS: RESP 18
[2024-12-06] MEDS: oxyCODONE HCL 5 MG TABLET PO PRN (22:24)
[2024-12-07] MEDS: ONDANSETRON 4 MG/2 ML VIAL IVPUSH PRN (07:42)
[2024-12-07 09:14] LABS: BASO % 0.3 % (0-2.0); EOS % 0.1 % (0-4.5); HEMATOCRIT 34.4 % (35.4-49); HEMOGLOBIN 11.5 GM/dL (11.7-16.9); LYMPH % 14.1 % (8-40); MCH 29.7 pg (25.7-33.7); MCHC 33.6 g/dl (32.0-35.9); MEAN CELL VOLUME 88.3 fl (80-96); MEAN PLT VOLUME 9.6 fl (7.5-11.1); MONO % 6.6 % (3.8-10.2); NEUT % 78.9 % (42.8-82.8); PLATELET COUNT 229 10^3/uL (134-434); RBC 3.89 M/mm3 (4.00-5.60); RDW 14.5 % (11.9-15.9); WHITE BLOOD COUNT 11.6 K/mm3 (4.0-10.0)
[2024-12-07 09:38] LABS: POTASSIUM 3.6 mmol/L (3.5-5.1)
[2024-12-07 09:42] LABS: CALCIUM 9.1 mg/dL (8.5-10.1)
[2024-12-07] MEDS: PANTOPRAZOLE SODIUM 40 MG VIAL IVPUSH SCH (09:42)
[2024-12-07 09:43] LABS: ALBUMIN 3.3 g/dl (3.4-5.0); BLOOD UREA NITROGEN 5.4 mg/dL (7-18)
[2024-12-07] MEDS: FOLIC ACID 1 MG TABLET (FP) PO SCH (09:43)
[2024-12-07] MEDS: THIAMINE 100 MG TABLET PO SCH (09:43)
[2024-12-07] MEDS: MULTIVITAMINS (DAILY MVI) TABLET (FP) PO SCH (09:44)
[2024-12-07 09:46] LABS: CREATININE 0.7 mg/dL (0.55-1.3)
[2024-12-07 09:48] LABS: BILIRUBIN,TOTAL 0.7 mg/dL (0.2-1); TOT PROT 7.8 g/dl (6.4-8.2)
[2024-12-07] MEDS: ENOXAPARIN NA (PORCINE) 40 MG/0.4 ML DISP.SYRIN SQ SCH (09:53)
[2024-12-07 18:38] VITALS: BP 108/65; PULSE 77; TEMP 98.6
== END 2024-12-07 18:44 | disposition home or self-care (01) | DRG 263 ==
LOC: JER 09:05 → JERBED 14:23 → J5S 16:17
PROVIDERS: ADMIT Internal Medicine; ATTEND Nurse Practitioner Family
PROC: 0FT44ZZ Resection of Gallbladder, Percutaneous Endoscopic Approach (ICD-10-PCS; principal; 2024-12-06 13:00)
DX: K80.10 Calculus of gallbladder with chronic cholecystitis without obstruction (principal); E83.42 Hypomagnesemia; K70.10 Alcoholic hepatitis without ascites; K21.9 Gastro-esophageal reflux disease without esophagitis; F14.10 Cocaine abuse, uncomplicated; E87.6 Hypokalemia; R79.89 Other specified abnormal findings of blood chemistry; F10.139 Alcohol abuse with withdrawal, unspecified; R74.01 Elevation of levels of liver transaminase levels
CPT/HCPCS: 36415; 74181-TC; 76705-TC; 78226-TC; 80048; 80053; 82962; 83690; 83735; 84100; 85025; 85610; 85730; 86704; 86803; 86850; 86900; 86901; 87340; 87389; 87517; 88304-TC; 93005; 93010; 94760; 97116-GP; 97161-GP; 99285-25; A9537; J0131; J1644